=== PATIENT | female | born 1955 | race Caucasian/White ===

== ENCOUNTER → 2016-12-11 | Outpatient (CLI) | payer OTHER ==
--- NOTE | 2017-01-03 00:37 | ECWPNPC ---
PATIENT NAME: VANDANA GUEVARA (ZECHER) : 1955 GENDER: FEMALE VISIT DATE: 12/11/2016 DISCHARGE DATE: 12/11/16 1106 VISIT LOCKED DATE TIME: PHYSICIAN: BRIANNA CHOI RESOURCE: BRIANNA CHOI REASON FOR APPOINTMENT 1. WC HISTORY OF PRESENT ILLNESS HISTORY OF PRESENT ILLNESS: PAIN THE PATIENT DESCRIBES THE PAIN... FALL RISK SCREENING: SCREENING :NO FALLS IN THE PAST YEAR TODAY'S VISIT: NOTES: RATES PAIN TODAY 5/10. IS S/P LEFT SIJ INJECTION ON 09/11/16. HAD NEAR 100 % PAIN RELIEF FOR FIRST FEW WEEKS. PAIN BECAIN TO RETURN . USING TENS, VOLTAREN GEL, DOING STRETCHES, ICE AND HEAT, AND THERACAINE.LEFT ANKLE CONTINUES TO BE VERY WEAK, AND TOES ARE NUMB. CONTINUE TO HAVE PAIN IN LEFT ANKLE WHICH INCREASES WITH WEIGHBEARING. GAIT IS OFF. AFO SPINT IS TIGHT OVER DISTAL TIB/FIB AND WILL BE ASKING THE ORTHOTICS MAKER TO STRETCH IT.. CURRENT MEDICATIONS TAKING THERA TEARS ALLERGY 0.025 % SOLUTION 1 DROP INTO AFFECTED EYE OPHTHALMIC TWICE A DAY, NOTES: 09/10/16 TAKING VITAMIN D 2000 UNIT CAPSULE 1 CAPSULE ORALLY TWICE DAILY, NOTES: 09/11/16 08 TAKING FISH OIL DOUBLE STRENGTH 1200 MG CAPSULE 1 CAPSULE ORALLY TWICE DAILY, NOTES: 09/11/16 08 TAKING IBUPROFEN 800 MG TABLET 1 TABLET ORALLY THREE TIMES A DAY NEEDED, NOTES: NONE LATELY TAKING EPIPEN 2-LUPE 0.3 MG/0.3ML SOLUTION AUTO-INJECTOR INJECTION DIRECTED TAKING VOLTAREN 1 % GEL EXTERNALLY DIRECTED, NOTES: 09/10/16 TAKING GABAPENTIN 600 MG TABLET 1 TABLET ORALLY THREE TIMES A DAY, NOTES: 09/11/16 08 TAKING DIOVAN 320 MG TABLET 1 TABLET ORALLY ONCE A DAY, NOTES: 09/11/16 08 TAKING CLONAZEPAM 0.5 MG TABLET 1 TABLET ORALLY 0.5MG1/2 TAB IN AM, 0.5MG AFTERNOON, NOTES: 09/11/16 0845 TAKING PROAIR HFA 108 (90 BASE) MCG/ACT AEROSOL SOLUTION 2 PUFFS NEEDED INHALATION QID PRN, NOTES: NONE LATELY TAKING IMITREX 100 MG TABLET 1 TABLET NEEDED ORALLY DIRECTED PRN MIGRAINES, NOTES: NONE LATELY TAKING PROBIOTIC CAPSULE 1 TAB(S) ORALLY DAILY, NOTES: 09/11/16 08 TAKING MAGNESIUM 400 MG CAPSULE 1 TAB(S) ORALLY ONCE A DAY, NOTES: 09/10/16 1600 TAKING BENADRYL ALLERGY 25 MG CAPSULE 1 CAPSULE NEEDED ORALLY EVERY 6 HRS NEEDED SEASONAL, NOTES: 09/10/162099 TAKING BACLOFEN 10 MG TABLET 1 TABLET WITH FOOD OR MILK ORALLY DAILY TAKING TOPAMAX 100 100MG TABLET ORAL AT BEDTIME, NOTES: 09/10/162099 TAKING 28-0.8 MG TABLET ORALLY , NOTES: 09/11/16 08 TAKING ASPIRIN EC 81 MG TABLET DELAYED RELEASE 1 TABLET ORALLY ONCE A DAY TAKING TRAMADOL HCL 50 MG TABLET 1 TAB ORALLY EVERY 4-6 HRS NEEDED TAKING LABETALOL HCL 100 MG TABLET ORALLY TWO TIMES DAILY TAKING VALSARTAN 320 MG TABLET 1 TABLET ORALLY ONCE A DAY TAKING AMLODIPINE BESYLATE 5 MG TABLET 1 TABLET ORALLY ONCE A DAY TAKING ARIPIPRAZOLE 2 MG TABLET 1 TABLET ORALLY ONCE A DAY TAKING PERCOCET 5-325 MG TABLET 1 TABLET NEEDED ORALLY EVERY 6 HRS TAKING SUSTAIN 1-2 DROPS NEEDED TAKING RESTASIS 0.05 % EMULSION 1 INTO AFFECTED EYE OPHTHALMIC TWICE A DAY TAKING ATORVASTATIN CALCIUM 10 MG TABLET 1 TABLET ORALLY ONCE A DAY DISCONTINUED VERAPAMIL HCL CR 180 MG CAPSULE EXTENDED RELEASE 24 HOUR 1 TABLET ORALLY ONCE A DAY, NOTES: 09/11/16 08 DISCONTINUED CARAFATE 1 GM TABLET 1 TABLET ON AN EMPTY STOMACH ORALLY QID SLURRY DISCONTINUED NASONEX 50 MCG/ACT SUSPENSION 2 SPRAYS IN EACH NOSTRIL NASALLY ONCE A DAY MEDICATION LIST REVIEWED AND RECONCILED WITH THE PATIENT PAST MEDICAL HISTORY PRIMARY HTN,SECONDARY RENAL HYPERPARATHYROIDISM,CRI STAGE 3,VIT D DEFICIENT,HYPOMAGNISEMIA CKD3, 11/05 RENAL US WITH INCREASED ECHOGENICITY CONS WITH [facility] RENAL DISEASE - [facility] EDEMA VIT D DEF HTN HYPOTHYROIDISM ASTHMA, DR NARVAEZ 2008, FELL WORKING FOOT TANGLED IN PURSE HANDLES FOR CP CLINIC, WEARS BRACE 03/07 LIVER US DIFFUSE FIBROFATTY INFILTRATION OF THE LIVER 01/05 MRI L SPINE - MIN CTL CANAL STENOSIS AT L1-2 D/T DISC BULGE, LIGAMENTOUSE AND FACET HYPERTROPHY, MILD CTL CANAL STENOSIS AT L2-3, L4-5 D/T DISC BULGE, LIGAMENTOUS AND FACET HYPERTROPHY, DIFFUSE DISC BULGE AND SMALL L PARACENTRAL DISC PROTRUSION AT THE L5-S1 WITH MINIMAL COMPRESSION OF THE THECAL SAC AND S1 NERVES, GREATER ON THE L, COMPRESSION OF THE L5 NERVES IN THE NEURAL FORAMINA. EPIGASTRIC TENDERNESS - DR STONE GI SYR 15 L WRIST FX - FISH OBESITY PSEUDOSEIZURES - NEURO/ALI ALLERGIES IV DYE: ANAPHYLAXIS PENICILLIN (FOR ALLERGIES USE ONLY): ANAPHYLAXIS: ALLERGY BEE POLLEN: ANAPHYLAXIS BACTRIM: ANAPHYLAXIS: ALLERGY ERYTHROMYCIN: ANAPHYLAXIS: ALLERGY PENICILLIN (FOR ALLERGIES USE ONLY): HIVES INDOCIN: HEADEACHES: ALLERGY ZITHROMAX: HEADACHES: ALLERGY INDOCIN: HIVES ZITHROMAX: HIVES IVP DYE: ANAPHYLAXIS: ALLERGY NSAIDS,TORADOL: HIVES BEE STINGS: ANAPHYLAXIS: ALLERGY HARD SHELL SEAFOOD: ANAPHYLAXIS: ALLERGY BIAXIN: HALLUCINATIONS NSAIDS: ANAPHYLAXIS: ALLERGY MUSCLE RELAXERS: SHAKES: SIDE EFFECTS SULFA (FOR ALLERGY USE ONLY): HIVES: ALLERGY SOCIAL HISTORY GENERAL: TOBACCO USE ARE YOU A:NONSMOKER LEARNING BARRIERS / SPECIAL NEEDS ORIENTED TO PLAN OF CARE: PATIENT, PAIN MANAGEMENT PATIENT, ORIENTED TO PLAN OF CARE: PATIENT, PAIN MANAGEMENT PATIENT. NEW PATIENT PAIN DIARY TODAY'S VISITNOTES FROM 0-10, WHAT LEVEL IS YOUR PAIN TODAY?0 PAIN CLINIC PFS, CLERGY, PUBLIC HEALTH REFERRALS PFS REFERRAL NEEDED?NO CLERGY REFERRAL NEEDED?NO PUBLIC HEALTH REFERRAL NEEDED?NO WAS THE PROVIDER NOTIFIED OF ANY PERTINENT INFO?NO PFS REFERRAL NEEDED?NO CLERGY REFERRAL NEEDED?NO PUBLIC HEALTH REFERRAL NEEDED?NO WAS THE PROVIDER NOTIFIED OF ANY PERTINENT INFO?NO REVIEW OF SYSTEMS CONSTITUTIONAL: ANY CHANGE IN YOUR MEDICAL CONDITION? NO . CHILLS NO . FEVER NO . INFECTION: DO YOU HAVE NEW INFECTIONS? NO . DO YOU HAVE HISTORY OF MRSA? NO . MUSCULOSKELETAL: ANY NEW PATTERNS OF PAIN OR NUMBNESS? NO . GASTROENTEROLOGY: ANY NEW CHANGE IN BOWEL CONTROL? NO . GENITOURINARY: ANY NEW CHANGE IN BLADDER CONTROL? NO . IS THERE A CHANCE YOU COULD BE ? NO . HEMATOLOGY/LYMPH: DO YOU TAKE ANY BLOOD THINNERS? (FOR EXAMPLE- COUMADIN, PLAVIX, AGGRENOX, PLATEL, PRADAXA, OR XARELTO) NO . WHEN WAS YOUR LAST DOSE? DATE: TIME: . NEUROLOGY: HAVE YOU FALLEN IN THE PAST 6 MONTHS? NO . ANY NEW EXTREMITY NUMBNESS OR WEAKNESS? NO . CARDIOLOGY: DO YOU HAVE A PACEMAKER OR DEFIBRILLATOR? NO . CHEST PAIN SAW DR HUBBARD - IS DYPSNEIC, CHAEST WALL AIN AT STERNUM. HAD RECENT STRESS TEST. . RESPIRATORY: HAVE YOU BEEN SICK IN THE PAST WEEK? NO . FEVER NO . FLU LIKE SYMPTOMS? NO . COUGH YES. SHORT OF BREATH . INTEGUMENTARY: DO YOU HAVE ANY RASHES OR OPEN SORES? NO . ALLERGIC/IMMUNO: ARE YOU ALLERGIC TO SHELLFISH OR IV DYE? YES, SHELLFISH AND IV DYE . ANY NEW ALLERGIES? NO . PSYCHIATRIC: DO YOU HAVE THOUGHTS OF HURTING YOURSELF OR SOMEONE ELSE? NO . ARE YOU ABUSED, NEGLECTED, OR IN AN UNSAFE ENVIRONMENT? NO . ENDOCRINOLOGY: ARE YOU DIABETIC? NO . OTHER: DO YOU NEED ANY PRESCRIPTIONS? NO . IF YES, PLEASE LIST: ____ . ANY NEW PROBLEMS WITH YOUR MEDICATIONS? NO . WHEN DID YOU LAST EAT? ____ . WHEN DID YOU LAST DRINK? ____ . WHAT DID YOU LAST DRINK? ____ . NAME OF PERSON DRIVING YOU HOME? ____ . DO YOU HAVE ANY OTHER QUESTIONS OR CONCERNS NO . UROLOGY: GENERAL SEEING DR HOOD FOR RENAL ISSUES . REVIEWED BY: PROVIDER: BRIANNA GONZALES . VITAL SIGNS WT 224.0 LBS, HT 64 IN, BMI 38.45 INDEX, BP 137/76 MM HG, HR 54 /MIN, RR 16 /MIN, TEMP 97.3 F, OXYGEN SAT % 99%, NA INITIALS SC 10:12, REVIEWED BY: CYRUS. EXAMINATION GENERAL EXAMINATION: PSYCHALERT , ORIENTED X 3 , APPROPRIATE MOOD AND AFFECT . LUNGS:CLEAR TO AUSCULTATION BILATERALLY. HEART:HEART RATE REGULAR. MUSCULOSKELETAL:POINT TENDERNESS OVER LUMBOSACRAL AXIS AND PARTICULARLY OVER LEFT SACRAL ILIAC JOINT. SLOW TO RISE TO STANDING POSITION. LEFT FOOT DROP PRESENT . NO AFO SPLINT TODAY. LEFT FOOT SWOLLEN, TENDER OVER LATERAL MALLEOLUS AND NAVICULAR BONE. HYPER SENSTIVITY TO LIGHT TOUCH IN THIS AREA.. PERIPHERAL PULSES:1+, DP/PT PULSES LEFT FOOT.. ASSESSMENTS LEFT ANKLE PAIN - M25.572 [employer] WITH DISORDER OF LUMBAR SPINE - M54.30 LOW BACK PAIN - M54.5 TREATMENT OTHERS NOTES: CONTINUE CURRENT MEDS. ALTERNATE ICE/HEAT TO PAINFUL MUSCLE SPASMS. SEE ORTHOTICS FOR AFO SPINT. PROCEDURES PN WORKMANS' COMP OPINION IN YOUR OPINION, WAS THE INCIDENT THAT THE PATIENT DESCRIBED THE COMPETENT MEDICAL CAUSE OF THIS INJURY/ILLNESS? YES ARE THE PATIENT'S COMPLAINTS CONSISTENT WITH HIS/HER HISTORY OF THE INJURY/ILLNESS? YES IS THE PATIENT'S HISTORY OF THE INJURY/ILLNESS CONSISTENT WITH YOUR OBJECTIVE FINDING? YES WHAT IS THE PERCENTAGE OF TEMPORARY IMPAIRMENT? MARKED = 75% IS THE PATIENT WORKING? NO DOCTOR ON SITE: CHARIS MCMAHON MD PROCEDURE CODES FA211 ESTABILISHED PATIENT [facility] CHARGE FOLLOW UP 6 WEEKS WC ELECTRONICALLY SIGNED BY BENITO CUELLO ON 01/02/2017 AT 08:41 AM EST DISCLAIMER : THIS IS A VISIT SUMMARY EXTRACTED FROM THE [employer] CHART. IT IS NOT A COPY OF THE [employer] PROGRESS NOTE. BUCKY
== END ==
LOC: M PAIN 10:00
PROVIDERS: ATTEND Nurse Practitioner Family
DX: Z09 Encounter for follow-up examination after completed treatment for conditions other than malignant neoplasm (principal); G89.29 Other chronic pain; M25.572 Pain in left ankle and joints of left foot; M54.30 Sciatica, unspecified side; M51.24 Other intervertebral disc displacement, thoracic region; I12.9 Hypertensive chronic kidney disease with stage 1 through stage 4 chronic kidney disease, or unspecified chronic kidney disease; N18.3 Chronic kidney disease, stage 3 (moderate); E03.9 Hypothyroidism, unspecified; E55.9 Vitamin D deficiency, unspecified; J45.909 Unspecified asthma, uncomplicated; K76.0 Fatty (change of) liver, not elsewhere classified; M51.26 Other intervertebral disc displacement, lumbar region; M51.27 Other intervertebral disc displacement, lumbosacral region; M12.88 Other specific arthropathies, not elsewhere classified, other specified site; E66.9 Obesity, unspecified; Z68.38 Body mass index [BMI] 38.0-38.9, adult; Z91.041 Radiographic dye allergy status; Z88.0 Allergy status to penicillin; Z91.030 Bee allergy status; Z88.3 Allergy status to other anti-infective agents; Z88.8 Allergy status to other drugs, medicaments and biological substances; Z88.2 Allergy status to sulfonamides; Z88.6 Allergy status to analgesic agent; Z91.013 Allergy to seafood; Z79.1 Long term (current) use of non-steroidal anti-inflammatories (NSAID); Z79.82 Long term (current) use of aspirin; Z79.891 Long term (current) use of opiate analgesic; Z79.899 Other long term (current) drug therapy; Z86.69 Personal history of other diseases of the nervous system and sense organs

== ENCOUNTER → 2017-01-29 | Outpatient (CLI) | payer OTHER ==
--- NOTE | 2017-02-07 23:27 | ECWPNPC ---
PATIENT NAME: VANDANA GUEVARA (ZECHER) : 1955 GENDER: FEMALE VISIT DATE: 01/29/2017 DISCHARGE DATE: 01/29/17 1607 VISIT LOCKED DATE TIME: PHYSICIAN: CHARIS HER RESOURCE: CHARIS HER REASON FOR APPOINTMENT 1. W/C HISTORY OF PRESENT ILLNESS HISTORY OF PRESENT ILLNESS: PAIN THE PATIENT DESCRIBES THE PAIN... 61 YEAR OLD FEMALE PATIENT WITH HISTORY OF CHRONIC LOW BACK PAIN, LEFT FOOT AND ANKLE PAIN. PATIENT DESCRIBES THE PAIN BURNING, THROBBING, AND SHOOTING WITH A PAIN SCORE OF 6/10 ON TODAY'S VISIT. PATIENT WAS INJURED IN A WORK RELATED INJURY ON 05-11-2008. PATIENT REPORTS THAT SHE WAS SITTING ON THE COUCH AT WORK, WORKING A EMERGENCY CARE TECH, AND APPARENTLY BOTH FEET FELL ASLEEP AND NUMB, WHEN SHE GOT UP AND FELL. PATIENT REPORTS THAT AFTER A COUPLE OF HOURS OF CONTINUED WORKING HER LEFT FOOT TURNED BLACK AND BLUE WITH INCREASED PAIN, THEN SHE WENT TO THE ER. PATIENT REPORTS THAT SHE HAS TRIED PHYSICAL THERAPY IN THE PAST, AND IT WORKED FOR A WHILE THEN IT STOPPED IMPROVING, BUT SEE IS OPENING TO TRYING PHYSICAL THERAPY AGAIN. PATIENT REPORTS THAT SHE USES A TENS UNIT. PATIENT REPORTS THAT HER LEFT ANKLE IS VERY SWOLLEN TODAY. , PATIENT DENIES UNEXPLAINABLE WEIGHT LOSS, FEVER, CHILLS, NEW CHANGES ON HER URINARY OR BOWEL CONTROL. FALL RISK SCREENING: SCREENING :NO FALLS IN THE PAST YEAR CURRENT MEDICATIONS TAKING THERA TEARS ALLERGY 0.025 % SOLUTION 1 DROP INTO AFFECTED EYE OPHTHALMIC TWICE A DAY, NOTES: 09/10/16 TAKING VITAMIN D 2000 UNIT CAPSULE 1 CAPSULE ORALLY TWICE DAILY, NOTES: 09/11/16799 TAKING FISH OIL DOUBLE STRENGTH 1200 MG CAPSULE 1 CAPSULE ORALLY TWICE DAILY, NOTES: 09/11/16799 TAKING IBUPROFEN 800 MG TABLET 1 TABLET ORALLY THREE TIMES A DAY NEEDED, NOTES: NONE LATELY TAKING EPIPEN 2-LUPE 0.3 MG/0.3ML SOLUTION AUTO-INJECTOR INJECTION DIRECTED TAKING VOLTAREN 1 % GEL EXTERNALLY DIRECTED, NOTES: 09/10/16 TAKING GABAPENTIN 600 MG TABLET 1 TABLET ORALLY THREE TIMES A DAY, NOTES: 09/11/16799 TAKING DIOVAN 320 MG TABLET 1 TABLET ORALLY ONCE A DAY, NOTES: 09/11/16799 TAKING CLONAZEPAM 0.5 MG TABLET 0.5 ORALLY 0.5MG1/2 TAB IN AM, 0.5MG AFTERNOON, NOTES: 09/11/16 0845 TAKING PROAIR HFA 108 (90 BASE) MCG/ACT AEROSOL SOLUTION 2 PUFFS NEEDED INHALATION QID PRN, NOTES: NONE LATELY TAKING IMITREX 100 MG TABLET 1 TABLET NEEDED ORALLY DIRECTED PRN MIGRAINES, NOTES: NONE LATELY TAKING PROBIOTIC CAPSULE 1 TAB(S) ORALLY DAILY, NOTES: 09/11/16 0800 TAKING MAGNESIUM 400 MG CAPSULE 1 TAB(S) ORALLY ONCE A DAY, NOTES: 09/10/16 1600 TAKING BENADRYL ALLERGY 25 MG CAPSULE 1 CAPSULE NEEDED ORALLY EVERY 6 HRS NEEDED SEASONAL, NOTES: 09/10/162099 TAKING BACLOFEN 10 MG TABLET 1 TABLET WITH FOOD OR MILK ORALLY DAILY TAKING TOPAMAX 100 100MG TABLET ORAL AT BEDTIME, NOTES: 09/10/162099 TAKING 28-0.8 MG TABLET ORALLY , NOTES: 09/11/16 08 TAKING ASPIRIN EC 81 MG TABLET DELAYED RELEASE 1 TABLET ORALLY ONCE A DAY TAKING LABETALOL HCL 100 MG TABLET ORALLY TWO TIMES DAILY TAKING VALSARTAN 320 MG TABLET 1 TABLET ORALLY ONCE A DAY TAKING AMLODIPINE BESYLATE 5 MG TABLET 1 TABLET ORALLY ONCE A DAY TAKING ARIPIPRAZOLE 2 MG TABLET 1 TABLET ORALLY ONCE A DAY TAKING PERCOCET 5-325 MG TABLET 1 TABLET NEEDED ORALLY EVERY 6 HRS TAKING SUSTAIN 1-2 DROPS NEEDED TAKING RESTASIS 0.05 % EMULSION 1 INTO AFFECTED EYE OPHTHALMIC TWICE A DAY TAKING ATORVASTATIN CALCIUM 10 MG TABLET 1 TABLET ORALLY ONCE A DAY TAKING LIDODERM 5 % PATCH DIRECTED EXTERNALLY APPLY 1 PATCH TO PAINFUL AREA OF LOW BACK ON 12 HRS OFF 12 HOURS PRN PAIN. TAKING TRAMADOL HCL 50 MG TABLET 1 TAB ORALLY EVERY 4-6 HRS NEEDED TAKING LABETALOL HCL MEDICATION LIST REVIEWED AND RECONCILED WITH THE PATIENT PAST MEDICAL HISTORY PRIMARY HTN,SECONDARY RENAL HYPERPARATHYROIDISM,CRI STAGE 3,VIT D DEFICIENT,HYPOMAGNISEMIA CKD3, 11/05 RENAL US WITH INCREASED ECHOGENICITY CONS WITH [facility] MEDICAL RENAL DISEASE - [facility] EDEMA VIT D DEF HTN HYPOTHYROIDISM ASTHMA, DR NARVAEZ 2008, FELL WORKING FOOT TANGLED IN PURSE HANDLES FOR CP CLINIC, WEARS BRACE 03/07 LIVER US DIFFUSE FIBROFATTY INFILTRATION OF THE LIVER 01/05 MRI L SPINE - MIN CTL CANAL STENOSIS AT L1-2 D/T DISC BULGE, LIGAMENTOUSE AND FACET HYPERTROPHY, MILD CTL CANAL STENOSIS AT L2-3, L4-5 D/T DISC BULGE, LIGAMENTOUS AND FACET HYPERTROPHY, DIFFUSE DISC BULGE AND SMALL L PARACENTRAL DISC PROTRUSION AT THE L5-S1 WITH MINIMAL COMPRESSION OF THE THECAL SAC AND S1 NERVES, GREATER ON THE L, COMPRESSION OF THE L5 NERVES IN THE NEURAL FORAMINA. EPIGASTRIC TENDERNESS - DR STONE GI SYR 15 L WRIST FX - FISH OBESITY PSEUDOSEIZURES - NEURO/ALI ALLERGIES IV DYE: ANAPHYLAXIS PENICILLIN (FOR ALLERGIES USE ONLY): ANAPHYLAXIS: ALLERGY BEE POLLEN: ANAPHYLAXIS BACTRIM: ANAPHYLAXIS: ALLERGY ERYTHROMYCIN: ANAPHYLAXIS: ALLERGY PENICILLIN (FOR ALLERGIES USE ONLY): HIVES INDOCIN: HEADEACHES: ALLERGY ZITHROMAX: HEADACHES: ALLERGY INDOCIN: HIVES ZITHROMAX: HIVES IVP DYE: ANAPHYLAXIS: ALLERGY NSAIDS,TORADOL: HIVES BEE STINGS: ANAPHYLAXIS: ALLERGY HARD SHELL SEAFOOD: ANAPHYLAXIS: ALLERGY BIAXIN: HALLUCINATIONS NSAIDS: ANAPHYLAXIS: ALLERGY MUSCLE RELAXERS: SHAKES: SIDE EFFECTS SULFA (FOR ALLERGY USE ONLY): HIVES: ALLERGY SURGICAL HISTORY HYSTERECTOMY,CHOLECYSTECTOMY,INGUINAL HERNIA,RIGHT,COLONOSCOPY,POLYPECTOMYX2,TONSILLECTOMY FAMILY HISTORY NO FAMILY HISTORY DOCUMENTED. SOCIAL HISTORY GENERAL: TOBACCO USE ARE YOU A:NONSMOKER LEARNING BARRIERS / SPECIAL NEEDS ORIENTED TO PLAN OF CARE: PATIENT, PAIN MANAGEMENT PATIENT, ORIENTED TO PLAN OF CARE: PATIENT, PAIN MANAGEMENT PATIENT. NEW PATIENT PAIN DIARY TODAY'S VISITNOTES FROM 0-10, WHAT LEVEL IS YOUR PAIN TODAY?0 PAIN CLINIC PFS, CLERGY, PUBLIC HEALTH REFERRALS PFS REFERRAL NEEDED?NO CLERGY REFERRAL NEEDED?NO PUBLIC HEALTH REFERRAL NEEDED?NO WAS THE PROVIDER NOTIFIED OF ANY PERTINENT INFO?NO PFS REFERRAL NEEDED?NO CLERGY REFERRAL NEEDED?NO PUBLIC HEALTH REFERRAL NEEDED?NO WAS THE PROVIDER NOTIFIED OF ANY PERTINENT INFO?NO HOSPITALIZATION/MAJOR DIAGNOSTIC PROCEDURE SURG RELATED REVIEW OF SYSTEMS CONSTITUTIONAL: ANY CHANGE IN YOUR MEDICAL CONDITION? NO . CHILLS NO . FEVER NO . INFECTION: DO YOU HAVE NEW INFECTIONS? NO . DO YOU HAVE HISTORY OF MRSA? NO . MUSCULOSKELETAL: ANY NEW PATTERNS OF PAIN OR NUMBNESS? NO . GASTROENTEROLOGY: ANY NEW CHANGE IN BOWEL CONTROL? NO . GENITOURINARY: ANY NEW CHANGE IN BLADDER CONTROL? NO . IS THERE A CHANCE YOU COULD BE ? NO . HEMATOLOGY/LYMPH: DO YOU TAKE ANY BLOOD THINNERS? (FOR EXAMPLE- COUMADIN, PLAVIX, AGGRENOX, PLATEL, PRADAXA, OR XARELTO) NO . WHEN WAS YOUR LAST DOSE? DATE: TIME: . NEUROLOGY: HAVE YOU FALLEN IN THE PAST 6 MONTHS? NO . ANY NEW EXTREMITY NUMBNESS OR WEAKNESS? NO . CARDIOLOGY: DO YOU HAVE A PACEMAKER OR DEFIBRILLATOR? NO . RESPIRATORY: HAVE YOU BEEN SICK IN THE PAST WEEK? NO . FEVER NO . FLU LIKE SYMPTOMS? NO . COUGH NO . INTEGUMENTARY: DO YOU HAVE ANY RASHES OR OPEN SORES? NO . ALLERGIC/IMMUNO: ARE YOU ALLERGIC TO SHELLFISH OR IV DYE? NO . ANY NEW ALLERGIES? NO . PSYCHIATRIC: DO YOU HAVE THOUGHTS OF HURTING YOURSELF OR SOMEONE ELSE? NO . ARE YOU ABUSED, NEGLECTED, OR IN AN UNSAFE ENVIRONMENT? NO . ENDOCRINOLOGY: ARE YOU DIABETIC? YES . OTHER: DO YOU NEED ANY PRESCRIPTIONS? NO . IF YES, PLEASE LIST: ____ . ANY NEW PROBLEMS WITH YOUR MEDICATIONS? NO . WHEN DID YOU LAST EAT? ____ . WHEN DID YOU LAST DRINK? ____ . WHAT DID YOU LAST DRINK? ____ . NAME OF PERSON DRIVING YOU HOME? ____ . DO YOU HAVE ANY OTHER QUESTIONS OR CONCERNS NO . REVIEWED BY: PROVIDER: CHARIS HER MD . VITAL SIGNS WT 228.8 LBS, HT 64 IN, BMI 39.27 INDEX, BP 164/80 MM HG, HR 57 /MIN, RR 16 /MIN, TEMP 96.6 F, OXYGEN SAT % 98%, NA INITIALS SC 14 :29, REVIEWED BY: VD. EXAMINATION : PATIENT IS ALERT O X 3 AND COOPERATIVE. PATIENT AMBULATES WITH A LIMP ON THE LEFT LEG. PATIENT'S LEFT LEG WEAKER AT FLEXION AND EXTENSION COMPARED TO THE RIGHT LEG. THERE IS TENDERNESS IN THE POSTERIOR LEFT ANKLE AREA AND THE LATERAL ASPECT OF THE LEFT FOOT. PATIENT'S LEFT ANKLE IS SWOLLEN. PATIENT HAS TENDERNESS IN THE LOWER BACK AREA ESPECIALLY IN THE LEFT SIDE AND THE SACROILIAC AREA. PATIENT ALSO HAS TENDERNESS IN THE LEFT LUMBAR FACET JOINTS. MRI OF THE LEFT ANKLE DONE ON 10-11-2015 SHOWS THERE IS A SCAR FORMATION INVOLVING THE ANTERIOR TALOFIBULAR LIGAMENT. MRI OF THE LUMBAR SPINE DONE ON 08-07-2016 SHOWS FACET ARTHROPATHY CHANGES AND DISC BULGES. 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 GUEVARA'S PAIN MANAGEMENT CASE. AT THIS TIME I WILL REFILL LIDODERM PATCH, VOLTAREN GEL, AND TRAMADOL FOR THE PATIENT TODAY. PATIENT REPORTS THAT SHE IS USING THE MEDICATION INTENDED FOR PAIN MANAGEMENT AND DENIES USING ANY ILLEGAL SUBSTANCES. PATIENT IS USING VOLTAREN GEL IN THE BACK FOR THE SOMATIC PAIN. PATIENT IS USING TRAMADOL FOR SOMATIC PAIN. PATIENT WILL FOLLOW UP WITH ME IN 5 WEEKS. , INSTRUCTIONS WERE GIVEN, QUESTIONS WERE ANSWERED, PATIENT REPORTS UNDERSTANDING AND AGREES WITH THE PLAN. I, COREY STRINGER, DOCUMENTED THE ABOVE INFORMATION ACTING A SCRIBE FOR DR. HER. I HAVE REVIEWED THE ABOVE DOCUMENT, WRITTEN BY COREY STRINGER SCRIBE AND I VERIFY THAT IT IS ACCURATE. OTHERS REFILL LIDODERM PATCH, 5 %, DIRECTED, EXTERNALLY (WORKERS COMP), APPLY 1 PATCH TO PAINFUL AREA OF LOW BACK ON 12 HRS OFF 12 HOURS PRN PAIN., 30 DAY(S), 20, REFILLS 2 REFILL VOLTAREN GEL, 1 %, 1 STRIP, EXTERNALLY (WORKERS COMP), THREE TIMES DAILY NEEDED FOR PAIN, 30 DAY(S), 1, REFILLS 1, NOTES: 09/10/16 REFILL TRAMADOL HCL TABLET, 50 MG, 1 TAB, ORALLY, EVERY 4-6 HRS NEEDED MDD3, 30 DAY(S), 80, REFILLS 0 PROCEDURES PN WORKMANS' COMP OPINION IN YOUR OPINION, WAS THE INCIDENT THAT THE PATIENT DESCRIBED THE COMPETENT MEDICAL CAUSE OF THIS INJURY/ILLNESS? YES ARE THE PATIENT'S COMPLAINTS CONSISTENT WITH HIS/HER HISTORY OF THE INJURY/ILLNESS? YES IS THE PATIENT'S HISTORY OF THE INJURY/ILLNESS CONSISTENT WITH YOUR OBJECTIVE FINDING? YES WHAT IS THE PERCENTAGE OF TEMPORARY IMPAIRMENT? MARKED = 75% IS THE PATIENT WORKING? YES DOCTOR ON SITE: CHARIS MCMAHON MD PROCEDURE CODES FA211 ESTABILISHED PATIENT [facility] FACILITY CHARGE G4630 PAIN ASSESS POS TOOL F/U PLAN DOC [id number] DOC MEDS VERIFIED W/PT OR RE DISPOSITION & COMMUNICATION FOLLOW UP 5 WEEKS ELECTRONICALLY SIGNED BY CHARIS HER MD ON 02/07/2017 AT 09:25 PM EDT DISCLAIMER : THIS IS A VISIT SUMMARY EXTRACTED FROM THE [employer] CHART. IT IS NOT A COPY OF THE [employer] PROGRESS NOTE. BUCKY
== END ==
LOC: M PAIN 14:00
PROVIDERS: ATTEND Anesthesiology
DX: Z09 Encounter for follow-up examination after completed treatment for conditions other than malignant neoplasm (principal); G89.29 Other chronic pain; M46.1 Sacroiliitis, not elsewhere classified; M51.17 Intervertebral disc disorders with radiculopathy, lumbosacral region; M51.16 Intervertebral disc disorders with radiculopathy, lumbar region; I12.9 Hypertensive chronic kidney disease with stage 1 through stage 4 chronic kidney disease, or unspecified chronic kidney disease; N18.3 Chronic kidney disease, stage 3 (moderate); E11.9 Type 2 diabetes mellitus without complications; E55.9 Vitamin D deficiency, unspecified; E03.9 Hypothyroidism, unspecified; J45.909 Unspecified asthma, uncomplicated; F44.5 Conversion disorder with seizures or convulsions; E66.01 Morbid (severe) obesity due to excess calories; Z68.39 Body mass index [BMI] 39.0-39.9, adult; Z91.041 Radiographic dye allergy status; Z88.0 Allergy status to penicillin; Z91.030 Bee allergy status; Z88.1 Allergy status to other antibiotic agents; Z88.6 Allergy status to analgesic agent; Z91.013 Allergy to seafood; Z88.2 Allergy status to sulfonamides; Z88.8 Allergy status to other drugs, medicaments and biological substances; Z79.1 Long term (current) use of non-steroidal anti-inflammatories (NSAID); Z79.82 Long term (current) use of aspirin; Z79.891 Long term (current) use of opiate analgesic

== ENCOUNTER → 2017-03-04 | Outpatient (CLI) | payer OTHER ==
--- NOTE | 2017-03-19 01:16 | ECWPNPC ---
PATIENT NAME: VANDANA GUEVARA (ZECHER) : 1955 GENDER: FEMALE VISIT DATE: 03/04/2017 DISCHARGE DATE: 03/04/17 1603 VISIT LOCKED DATE TIME: PHYSICIAN: CHARIS HER RESOURCE: CHARIS HER REASON FOR APPOINTMENT 1. W/C LOWER BACK, LT ANKLE AND FOOT PAIN HISTORY OF PRESENT ILLNESS HISTORY OF PRESENT ILLNESS: PAIN THE PATIENT DESCRIBES THE PAIN... 61 YEAR OLD MALE PATIENT WITH HISTORY OF CHRONIC LOW BACK, ANKLE, AND FOOT PAIN. PATIENT DESCRIBES THE PAIN ACHING, STABBING, TENDER, THROBBING, SHOOTING, AND HAVING IT ALL THE TIME WITH A PAIN SCORE OF 5/10. PATIENT WAS HURT IN A WORK RELATED INJURY ON 05/11/2008 WHILE WORKING THE [employer]. MRS. GUEVARA WAS SITTING AND HER FEET BECAME NUMB AND WHEN SHE STOOD UP TO WALK SHE FELL. PATIENT HAS HAD 4 BACK SURGERIES SINCE THE INCIDENT. PATIENT STATES SHE HAS TRIED PHYSICAL THERAPY IN THE PAST AND IT DID AID IN PAIN RELIEF AND INCREASED FUNCTIONALITY FOR SOME TIME. PATIENT IS CURRENTLY USING LIDODERM PATCH, VOLTAREN GEL, AND TRAMADOL. MRS. GUEVARA STATES THAT THE MEDICATION KEEPS HER MOBILE AND FUNCTIONAL. PATIENT STATES THAT ANY ACTIVITY INCREASED THE PAIN IN HER LOWER BACK AND ANKLE AND AT THIS TIME REST AND MEDICATION AIDS IN PAIN RELIEF. PATIENT DENIES UNEXPLAINABLE WEIGHT LOSS, FEVER, CHILLS, NEW CHANGES ON HER URINARY OR BOWEL CONTROL. FALL RISK SCREENING: SCREENING :NO FALLS IN THE PAST YEAR CURRENT MEDICATIONS TAKING VOLTAREN 1 % GEL 1 STRIP EXTERNALLY (WORKERS COMP) THREE TIMES DAILY NEEDED FOR PAIN, NOTES: 09/10/16 TAKING LIDODERM 5 % PATCH DIRECTED EXTERNALLY (WORKERS COMP) APPLY 1 PATCH TO PAINFUL AREA OF LOW BACK ON 12 HRS OFF 12 HOURS PRN PAIN. TAKING TRAMADOL HCL 50 MG TABLET 1 TAB ORALLY EVERY 4-6 HRS NEEDED MDD3 TAKING THERA TEARS ALLERGY 0.025 % SOLUTION 1 DROP INTO AFFECTED EYE OPHTHALMIC TWICE A DAY, NOTES: 09/10/16 TAKING VITAMIN D 2000 UNIT CAPSULE 1 CAPSULE ORALLY TWICE DAILY, NOTES: 09/11/16 0800 TAKING FISH OIL DOUBLE STRENGTH 1200 MG CAPSULE 1 CAPSULE ORALLY TWICE DAILY, NOTES: 09/11/16 0800 TAKING IBUPROFEN 800 MG TABLET 1 TABLET ORALLY THREE TIMES A DAY NEEDED, NOTES: NONE LATELY TAKING EPIPEN 2-LUPE 0.3 MG/0.3ML SOLUTION AUTO-INJECTOR INJECTION DIRECTED TAKING GABAPENTIN 600 MG TABLET 1 TABLET ORALLY THREE TIMES A DAY, NOTES: 09/11/16 08 TAKING DIOVAN 320 MG TABLET 1 TABLET ORALLY ONCE A DAY, NOTES: 09/11/16799 TAKING CLONAZEPAM 0.5 MG TABLET 0.5 ORALLY 0.5MG1/2 TAB IN AM, 0.5MG 1/2 TAB AFTERNOON, NOTES: 09/11/16 08 TAKING PROAIR HFA 108 (90 BASE) MCG/ACT AEROSOL SOLUTION 2 PUFFS NEEDED INHALATION QID PRN, NOTES: NONE LATELY TAKING IMITREX 100 MG TABLET 1 TABLET NEEDED ORALLY DIRECTED PRN MIGRAINES, NOTES: NONE LATELY TAKING PROBIOTIC CAPSULE 1 TAB(S) ORALLY DAILY, NOTES: 09/11/16799 TAKING MAGNESIUM 400 MG CAPSULE 1 TAB(S) ORALLY ONCE A DAY, NOTES: 09/10/16 1600 TAKING BENADRYL ALLERGY 25 MG CAPSULE 1 CAPSULE NEEDED ORALLY EVERY 6 HRS NEEDED SEASONAL, NOTES: 09/10/162099 TAKING BACLOFEN 10 MG TABLET 1 TABLET WITH FOOD OR MILK ORALLY DAILY TAKING TOPAMAX 100 100MG TABLET ORAL AT BEDTIME, NOTES: 09/10/162099 TAKING 28-0.8 MG TABLET ORALLY , NOTES: 09/11/16 08 TAKING ASPIRIN EC 81 MG TABLET DELAYED RELEASE 1 TABLET ORALLY ONCE A DAY TAKING LABETALOL HCL 100 MG TABLET ORALLY TWO TIMES DAILY TAKING VALSARTAN 320 MG TABLET 1 TABLET ORALLY ONCE A DAY TAKING AMLODIPINE BESYLATE 5 MG TABLET 1 TABLET ORALLY ONCE A DAY TAKING ARIPIPRAZOLE 2 MG TABLET 1 TABLET ORALLY ONCE A DAY TAKING PERCOCET 5-325 MG TABLET 1 TABLET NEEDED ORALLY EVERY 6 HRS TAKING SUSTAIN 1-2 DROPS NEEDED TAKING ATORVASTATIN CALCIUM 10 MG TABLET 1 TABLET ORALLY ONCE A DAY DISCONTINUED RESTASIS 0.05 % EMULSION 1 INTO AFFECTED EYE OPHTHALMIC TWICE A DAY DISCONTINUED LABETALOL HCL MEDICATION LIST REVIEWED AND RECONCILED WITH THE PATIENT PAST MEDICAL HISTORY PRIMARY HTN,SECONDARY RENAL HYPERPARATHYROIDISM,CRI STAGE 3,VIT D DEFICIENT,HYPOMAGNISEMIA CKD3, 11/05 RENAL US WITH INCREASED ECHOGENICITY CONS WITH [facility] MEDICAL RENAL DISEASE - ERWIN EDEMA VIT D DEF HTN HYPOTHYROIDISM ASTHMA, DR NARVAEZ 2008, FELL WORKING FOOT TANGLED IN PURSE HANDLES FOR CP CLINIC, WEARS BRACE 03/07 LIVER US DIFFUSE FIBROFATTY INFILTRATION OF THE LIVER 01/05 MRI L SPINE - MIN CTL CANAL STENOSIS AT L1-2 D/T DISC BULGE, LIGAMENTOUSE AND FACET HYPERTROPHY, MILD CTL CANAL STENOSIS AT L2-3, L4-5 D/T DISC BULGE, LIGAMENTOUS AND FACET HYPERTROPHY, DIFFUSE DISC BULGE AND SMALL L PARACENTRAL DISC PROTRUSION AT THE L5-S1 WITH MINIMAL COMPRESSION OF THE THECAL SAC AND S1 NERVES, GREATER ON THE L, COMPRESSION OF THE L5 NERVES IN THE NEURAL FORAMINA. EPIGASTRIC TENDERNESS - DR STONE GI SYR 02/04 L WRIST FX - FISH OBESITY PSEUDOSEIZURES - NEURO/ALI ALLERGIES IV DYE: ANAPHYLAXIS PENICILLIN (FOR ALLERGIES USE ONLY): ANAPHYLAXIS: ALLERGY BEE POLLEN: ANAPHYLAXIS BACTRIM: ANAPHYLAXIS: ALLERGY ERYTHROMYCIN: ANAPHYLAXIS: ALLERGY PENICILLIN (FOR ALLERGIES USE ONLY): HIVES INDOCIN: HEADEACHES: ALLERGY ZITHROMAX: HEADACHES: ALLERGY INDOCIN: HIVES ZITHROMAX: HIVES IVP DYE: ANAPHYLAXIS: ALLERGY NSAIDS,TORADOL: HIVES BEE STINGS: ANAPHYLAXIS: ALLERGY HARD SHELL SEAFOOD: ANAPHYLAXIS: ALLERGY BIAXIN: HALLUCINATIONS NSAIDS: ANAPHYLAXIS: ALLERGY MUSCLE RELAXERS: SHAKES: SIDE EFFECTS SULFA (FOR ALLERGY USE ONLY): HIVES: ALLERGY SURGICAL HISTORY HYSTERECTOMY,CHOLECYSTECTOMY,INGUINAL HERNIA,RIGHT,COLONOSCOPY,POLYPECTOMYX2,TONSILLECTOMY TENDON REPAIR LEFT WRIST/L THUMB 02/17/2017 FAMILY HISTORY NO FAMILY HISTORY DOCUMENTED. SOCIAL HISTORY GENERAL: PAIN CLINIC PFS, CLERGY, PUBLIC HEALTH REFERRALS CLERGY REFERRAL NEEDED?NO WAS THE PROVIDER NOTIFIED OF ANY PERTINENT INFO?NO PFS REFERRAL NEEDED?NO PUBLIC HEALTH REFERRAL NEEDED?NO PATIENT: ____. HOSPITALIZATION/MAJOR DIAGNOSTIC PROCEDURE SURG RELATED REVIEW OF SYSTEMS CONSTITUTIONAL: ANY CHANGE IN YOUR MEDICAL CONDITION? YES 02/17 LEFT WRIST/THUMB TENDON REPAIR . CHILLS NO . FEVER NO . INFECTION: DO YOU HAVE NEW INFECTIONS? NO . DO YOU HAVE HISTORY OF MRSA? NO . MUSCULOSKELETAL: ANY NEW PATTERNS OF PAIN OR NUMBNESS? YES R/T LEFT WRIST/THUMB TENDON REPAIR SURGERY . GASTROENTEROLOGY: ANY NEW CHANGE IN BOWEL CONTROL? NO . GENITOURINARY: ANY NEW CHANGE IN BLADDER CONTROL? NO . IS THERE A CHANCE YOU COULD BE ? NO . HEMATOLOGY/LYMPH: DO YOU TAKE ANY BLOOD THINNERS? (FOR EXAMPLE- COUMADIN, PLAVIX, AGGRENOX, PLATEL, PRADAXA, OR XARELTO) NO . WHEN WAS YOUR LAST DOSE? DATE: TIME: . NEUROLOGY: HAVE YOU FALLEN IN THE PAST 6 MONTHS? NO . ANY NEW EXTREMITY NUMBNESS OR WEAKNESS? NO . CARDIOLOGY: DO YOU HAVE A PACEMAKER OR DEFIBRILLATOR? NO . RESPIRATORY: HAVE YOU BEEN SICK IN THE PAST WEEK? NO . FEVER NO . FLU LIKE SYMPTOMS? NO . COUGH NO . INTEGUMENTARY: DO YOU HAVE ANY RASHES OR OPEN SORES? NO . ALLERGIC/IMMUNO: ARE YOU ALLERGIC TO SHELLFISH OR IV DYE? YES . ANY NEW ALLERGIES? NO . PSYCHIATRIC: DO YOU HAVE THOUGHTS OF HURTING YOURSELF OR SOMEONE ELSE? NO . ARE YOU ABUSED, NEGLECTED, OR IN AN UNSAFE ENVIRONMENT? NO . ENDOCRINOLOGY: ARE YOU DIABETIC? NO . OTHER: DO YOU NEED ANY PRESCRIPTIONS? NO . IF YES, PLEASE LIST: ____ . ANY NEW PROBLEMS WITH YOUR MEDICATIONS? NO . WHEN DID YOU LAST EAT? ____ . WHEN DID YOU LAST DRINK? ____ . WHAT DID YOU LAST DRINK? ____ . NAME OF PERSON DRIVING YOU HOME? ____ . DO YOU HAVE ANY OTHER QUESTIONS OR CONCERNS NO . REVIEWED BY: PROVIDER: CHARIS HER MD . VITAL SIGNS WT 228 LBS, HT 64 IN, BMI 39.13 INDEX, BP 126/65 MM HG, HR 52 /MIN, RR 16 /MIN, TEMP 96.7 F, OXYGEN SAT % 94%, REVIEWED BY: MLF. EXAMINATION : PATIENT IS ALERT O X 3 AND COOPERATIVE. BRACE OVER LEFT ANKLE. LIMPING FROM LEFT LEG. ANTALGIC GAIT. TENDERNESS IN THE LOWER BACK AND PARASPINAL MUSCLE GROUP. LEFT LEG IS WEAKER THEN THE RIGHT AT EXTENSION AND FLEXION .MRI OF THE LUMBAR SPINE DONE ON 08/07/16 SHOWS MULTIPLE DISC BULGES, DEGENERATIVE DISC DISEASE, AND OSTEOARTHRITIC FACET DISEASE. 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 GUEVARA'S PAIN MANAGEMENT CASE. AT THIS TIME THE PATIENT WILL CONTINUE WITH THE SAME MEDICATION REGIME BEFORE. PATIENT DENIES ABUSE OF ANY MEDICATION, DENIES USE OF ILLEGAL SUBSTANCES AND STATES SHE IS ONLY USING THE MEDICATION FOR PAIN MANAGEMENT. URINE TOXICOLOGY REPORT DONE ON 03/04/17 SHOWS CONSISTENT RESULTS WITH THE PATIENT'S MEDICATION LIST. WE DISCUSSED POSSIBLE INTERVENTIONS THAT THE PATIENT IS A CANDIDATE FOR. WE DISCUSSED MOVING FORWARD WITH A RADIOFREQUENCY, PATIENT IS AWARE THAT THEY WILL NEED TO HAVE 2 DIAGNOSTIC TESTS DONE PRIOR TO THE RADIOFREQUENCY. PATIENT WOULD LIKE TO MOVE FORWARD WITH A LUMBAR FACET THERAPEUTIC BLOCK BEFORE TRYING THE DIAGNOSTIC TESTS. INSTRUCTIONS WERE GIVEN, QUESTIONS WERE ANSWERED, PATIENT REPORTS UNDERSTANDING AND AGREES WITH THE PLAN. I, SYDNIE AMBRIZ, DOCUMENTED THE ABOVE INFORMATION ACTING A SCRIBE FOR DR. HER. I HAVE REVIEWED THE ABOVE DOCUMENT, WRITTEN BY SYDNIE KILGOREIBScooby AND I VERIFY THAT IT IS ACCURATE. OTHERS REFILL VOLTAREN GEL, 1 %, 1 STRIP, EXTERNALLY (WORKERS COMP), THREE TIMES DAILY NEEDED FOR PAIN, 30 DAY(S), 1, REFILLS 3, NOTES: 09/10/16 REFILL LIDODERM PATCH, 5 %, DIRECTED, EXTERNALLY (WORKERS COMP), APPLY 1 PATCH TO PAINFUL AREA OF LOW BACK ON 12 HRS OFF 12 HOURS PRN PAIN., 30 DAY(S), 20, REFILLS 2 REFILL TRAMADOL HCL TABLET, 50 MG, 1 TAB, ORALLY (CODE D FOR CHRONIC PAIN ), EVERY 4-6 HRS NEEDED MDD3, 60 DAYS, 160, REFILLS 0 NOTES: FACET JOINT INJECTION MATERIAL WAS PRINTED,FACET JOINT INJECTION: YOUR EXPERIENCE MATERIAL WAS PRINTED. PROCEDURES PN WORKMANS' COMP OPINION IN YOUR OPINION, WAS THE INCIDENT THAT THE PATIENT DESCRIBED THE COMPETENT MEDICAL CAUSE OF THIS INJURY/ILLNESS? YES ARE THE PATIENT'S COMPLAINTS CONSISTENT WITH HIS/HER HISTORY OF THE INJURY/ILLNESS? YES IS THE PATIENT'S HISTORY OF THE INJURY/ILLNESS CONSISTENT WITH YOUR OBJECTIVE FINDING? YES WHAT IS THE PERCENTAGE OF TEMPORARY IMPAIRMENT? MARKED = 75% IS THE PATIENT WORKING? NO DOCTOR ON SITE: CHARIS MCMAHON MD PROCEDURE CODES FA211 ESTABILISHED PATIENT [facility] FACILITY CHARGE Q2584 DOC MEDS VERIFIED W/PT OR RE G8730 PAIN ASSESS POS TOOL F/U PLAN DOC DISPOSITION & COMMUNICATION FOLLOW UP LFBT AFTER APPROVAL ELECTRONICALLY SIGNED BY CHARIS HER MD ON 03/16/2017 AT 08:31 PM EDT DISCLAIMER : THIS IS A VISIT SUMMARY EXTRACTED FROM THE [employer] CHART. IT IS NOT A COPY OF THE [employer] PROGRESS NOTE. AMADOD
== END ==
LOC: M PAIN 15:20
PROVIDERS: ATTEND Anesthesiology
DX: G89.29 Other chronic pain (principal); M51.16 Intervertebral disc disorders with radiculopathy, lumbar region; M51.17 Intervertebral disc disorders with radiculopathy, lumbosacral region; M96.1 Postlaminectomy syndrome, not elsewhere classified; M47.816 Spondylosis without myelopathy or radiculopathy, lumbar region; M47.817 Spondylosis without myelopathy or radiculopathy, lumbosacral region; I12.9 Hypertensive chronic kidney disease with stage 1 through stage 4 chronic kidney disease, or unspecified chronic kidney disease; N18.3 Chronic kidney disease, stage 3 (moderate); E55.9 Vitamin D deficiency, unspecified; E03.9 Hypothyroidism, unspecified; J45.909 Unspecified asthma, uncomplicated; E66.9 Obesity, unspecified; F44.5 Conversion disorder with seizures or convulsions; Z68.39 Body mass index [BMI] 39.0-39.9, adult; Z91.041 Radiographic dye allergy status; Z88.0 Allergy status to penicillin; Z91.030 Bee allergy status; Z88.1 Allergy status to other antibiotic agents; Z88.6 Allergy status to analgesic agent; Z91.013 Allergy to seafood; Z88.2 Allergy status to sulfonamides; Z79.82 Long term (current) use of aspirin; Z79.899 Other long term (current) drug therapy

== ENCOUNTER → 2017-06-09 | Outpatient (CLI) | payer OTHER ==
[~2017-06-09] MED LIST: BUPIVACAINE HCL 0.25% 30 ML VIAL As Ordered ONE; LIDOCAINE 1% SDV INJ 30 ML VIAL As Ordered ONE; TRIAMCINOLONE ACETONIDE SUSP 40 MG/ML VIAL (J3301) As Ordered ONE; diazePAM 5 MG TAB As Ordered ONE; oxyCODONE 5MG TAB As Ordered ONE
--- NOTE | 2017-06-09 15:12 | REP ---
Partial lumbar spine series: Two views . History: Injection procedure for pain. 16 seconds of fluoroscopy time is reported. Findings: A sequence of two fluoroscopically obtained last image hold procedural spot radiographs of the lumbar spine document needle position and contrast injection associated with injection procedure. Signed by Mulugeta Simental MD 06/09/2017 03:04 P
--- NOTE | 2017-06-25 01:01 | ECWPNPC ---
PATIENT NAME: VANDANA GUEVARA (ZECHER) : 1955 GENDER: FEMALE VISIT DATE: 06/09/2017 DISCHARGE DATE: 06/09/17 1456 VISIT LOCKED DATE TIME: PHYSICIAN: CHARIS HER RESOURCE: CHARIS HER REASON FOR APPOINTMENT 1. WC, LUMBAR FACET HISTORY OF PRESENT ILLNESS HISTORY OF PRESENT ILLNESS: PAIN THE PATIENT DESCRIBES THE PAIN... FALL RISK SCREENING: SCREENING :NO FALLS IN THE PAST YEAR CURRENT MEDICATIONS TAKING PERCOCET 5-325 MG TABLET 1 TABLET NEEDED ORALLY EVERY 6 HRS, NOTES: MONTHS AGO TAKING VOLTAREN 1 % GEL 1 STRIP EXTERNALLY (WORKERS COMP) THREE TIMES DAILY NEEDED FOR PAIN, NOTES: 06/08/171999 TAKING LIDODERM 5 % PATCH DIRECTED EXTERNALLY (WORKERS COMP) APPLY 1 PATCH TO PAINFUL AREA OF LOW BACK ON 12 HRS OFF 12 HOURS PRN PAIN., NOTES: 06/08/17 0800A TAKING TRAMADOL HCL 50 MG TABLET 1 TAB ORALLY (CODE D FOR CHRONIC PAIN ) EVERY 4-6 HRS NEEDED MDD3, NOTES: MONTHS AGO TAKING THERA TEARS ALLERGY 0.025 % SOLUTION 1 DROP INTO AFFECTED EYE OPHTHALMIC TWICE A DAY, NOTES: 06/09/17 0600A TAKING VITAMIN D 2000 UNIT CAPSULE 1 CAPSULE ORALLY TWICE DAILY, NOTES: 06/08/17 1500 TAKING FISH OIL DOUBLE STRENGTH 1200 MG CAPSULE 1 CAPSULE ORALLY TWICE DAILY, NOTES: 06/08/17 1500 TAKING IBUPROFEN 800 MG TABLET 1 TABLET ORALLY THREE TIMES A DAY NEEDED, NOTES: NONE LATELY TAKING EPIPEN 2-LUPE 0.3 MG/0.3ML SOLUTION AUTO-INJECTOR INJECTION DIRECTED, NOTES: 2 WEEKS AGO TAKING GABAPENTIN 600 MG TABLET 1 TABLET ORALLY THREE TIMES A DAY, NOTES: 06/09/17 0700 TAKING DIOVAN 320 MG TABLET 1 TABLET ORALLY ONCE A DAY, NOTES: 06/08/17 2200 TAKING CLONAZEPAM 0.5 MG TABLET 0.5 ORALLY 0.5MG1/2 TAB IN AM, 0.5MG 1/2 TAB AFTERNOON, NOTES: 06/09/17 0700 TAKING PROAIR HFA 108 (90 BASE) MCG/ACT AEROSOL SOLUTION 2 PUFFS NEEDED INHALATION QID PRN, NOTES: NONE LATELY TAKING IMITREX 100 MG TABLET 1 TABLET NEEDED ORALLY DIRECTED PRN MIGRAINES, NOTES: 06/06/17 1800 TAKING PROBIOTIC CAPSULE 1 TAB(S) ORALLY DAILY, NOTES: 06/08/17699 TAKING MAGNESIUM 400 MG CAPSULE 1 TAB(S) ORALLY ONCE A DAY, NOTES: 06/08/17699 TAKING BENADRYL ALLERGY 25 MG CAPSULE 1 CAPSULE NEEDED ORALLY EVERY 6 HRS NEEDED SEASONAL, NOTES: NONE LATELY TAKING BACLOFEN 10 MG TABLET 1 TABLET WITH FOOD OR MILK ORALLY DAILY, NOTES: 06/08/172199 TAKING TOPAMAX 100 100MG TABLET ORAL AT BEDTIME, NOTES: 06/08/172199 TAKING 28-0.8 MG TABLET ORALLY , NOTES: 06/08/17699 TAKING ASPIRIN EC 81 MG TABLET DELAYED RELEASE 1 TABLET ORALLY ONCE A DAY, NOTES: 06/08/17699 TAKING LABETALOL HCL 100 MG TABLET ORALLY TWO TIMES DAILY, NOTES: 06/08/172199 TAKING VALSARTAN 320 MG TABLET 1 TABLET ORALLY ONCE A DAY, NOTES: 06/08/171499 TAKING AMLODIPINE BESYLATE 5 MG TABLET 1 TABLET ORALLY ONCE A DAY, NOTES: 06/08/17699 TAKING ARIPIPRAZOLE 2 MG TABLET 1 TABLET ORALLY ONCE A DAY, NOTES: 06/08/17699 TAKING SUSTAIN 1-2 DROPS NEEDED, NOTES: 06/08/17699 TAKING ATORVASTATIN CALCIUM 10 MG TABLET 1 TABLET ORALLY ONCE A DAY, NOTES: 06/08/172199 TAKING HYDROCHLOROTHIAZIDE 12.5 MG CAPSULE 1 CAPSULE IN THE MORNING ORALLY ONCE A DAY, NOTES: 06/08/17699 TAKING KLOR-CON M20 20 MEQ TABLET EXTENDED RELEASE 1 TABLET WITH FOOD ORALLY ONCE A DAY, NOTES: 06/08/17 TAKING SUMATRIPTAN & HOMEOPATHIC PROD 50 MG THERAPY PACK 100MG ORALLY BID PRN HEADACHE, NOTES: 06/06/171799 TAKING ALBUTEROL SULFATE 108 (90 BASE) MCG/ACT AEROSOL POWDER BREATH ACTIVATED 1 PUFF NEEDED INHALATION EVERY 4 HRS, NOTES: NONE LATELY TAKING EPINEPHRINE 0.3 MG/DOSE DEVICE INJECTION , NOTES: 2 WEEKS AGO MEDICATION LIST REVIEWED AND RECONCILED WITH THE PATIENT PAST MEDICAL HISTORY PRIMARY HTN,SECONDARY RENAL HYPERPARATHYROIDISM,CRI STAGE 3,VIT D DEFICIENT,HYPOMAGNISEMIA CKD3, 11/05 RENAL US WITH INCREASED ECHOGENICITY CONS WITH [facility] MEDICAL RENAL DISEASE - ERWNI EDEMA VIT D DEF HTN HYPOTHYROIDISM ASTHMA, DR NARVAEZ 2008, FELL WORKING FOOT TANGLED IN PURSE HANDLES FOR CP CLINIC, WEARS BRACE 03/07 LIVER US DIFFUSE FIBROFATTY INFILTRATION OF THE LIVER 01/05 MRI L SPINE - MIN CTL CANAL STENOSIS AT L1-2 D/T DISC BULGE, LIGAMENTOUSE AND FACET HYPERTROPHY, MILD CTL CANAL STENOSIS AT L2-3, L4-5 D/T DISC BULGE, LIGAMENTOUS AND FACET HYPERTROPHY, DIFFUSE DISC BULGE AND SMALL L PARACENTRAL DISC PROTRUSION AT THE L5-S1 WITH MINIMAL COMPRESSION OF THE THECAL SAC AND S1 NERVES, GREATER ON THE L, COMPRESSION OF THE L5 NERVES IN THE NEURAL FORAMINA. EPIGASTRIC TENDERNESS - DR STONE GI SYR 02/04 L WRIST FX - FISH OBESITY PSEUDOSEIZURES - NEURO/ALI ALLERGIES IV DYE: ANAPHYLAXIS PENICILLIN (FOR ALLERGIES USE ONLY): ANAPHYLAXIS: ALLERGY BEE POLLEN: ANAPHYLAXIS BACTRIM: ANAPHYLAXIS: ALLERGY ERYTHROMYCIN: ANAPHYLAXIS: ALLERGY PENICILLIN (FOR ALLERGIES USE ONLY): HIVES INDOCIN: HEADEACHES: ALLERGY ZITHROMAX: HEADACHES: ALLERGY INDOCIN: HIVES ZITHROMAX: HIVES IVP DYE: ANAPHYLAXIS: ALLERGY NSAIDS,TORADOL: HIVES BEE STINGS: ANAPHYLAXIS: ALLERGY HARD SHELL SEAFOOD: ANAPHYLAXIS: ALLERGY BIAXIN: HALLUCINATIONS NSAIDS: ANAPHYLAXIS: ALLERGY MUSCLE RELAXERS: SHAKES: SIDE EFFECTS SULFA (FOR ALLERGY USE ONLY): HIVES: ALLERGY SURGICAL HISTORY HYSTERECTOMY,CHOLECYSTECTOMY,INGUINAL HERNIA,RIGHT,COLONOSCOPY,POLYPECTOMYX2,TONSILLECTOMY TENDON REPAIR LEFT WRIST/L THUMB 02/17/2017 HOSPITALIZATION/MAJOR DIAGNOSTIC PROCEDURE SURG RELATED REVIEW OF SYSTEMS REVIEWED BY: PROVIDER: . CONSTITUTIONAL: ANY CHANGE IN YOUR MEDICAL CONDITION? NO . CHILLS NO . FEVER NO . INFECTION: DO YOU HAVE NEW INFECTIONS? NO . DO YOU HAVE HISTORY OF MRSA? NO . MUSCULOSKELETAL: ANY NEW PATTERNS OF PAIN OR NUMBNESS? YES, PAIN IS RADIATING UP BOTH HIPS FROM SPINE AREA . GASTROENTEROLOGY: ANY NEW CHANGE IN BOWEL CONTROL? NO . GENITOURINARY: ANY NEW CHANGE IN BLADDER CONTROL? NO . IS THERE A CHANCE YOU COULD BE ? NO . HEMATOLOGY/LYMPH: DO YOU TAKE ANY BLOOD THINNERS? (FOR EXAMPLE- COUMADIN, PLAVIX, AGGRENOX, PLATEL, PRADAXA, OR XARELTO) NO . WHEN WAS YOUR LAST DOSE? DATE: TIME: . NEUROLOGY: HAVE YOU FALLEN IN THE PAST 6 MONTHS? NO . ANY NEW EXTREMITY NUMBNESS OR WEAKNESS? NO . CARDIOLOGY: DO YOU HAVE A PACEMAKER OR DEFIBRILLATOR? NO . RESPIRATORY: HAVE YOU BEEN SICK IN THE PAST WEEK? NO . FEVER NO . FLU LIKE SYMPTOMS? NO . COUGH NO . INTEGUMENTARY: DO YOU HAVE ANY RASHES OR OPEN SORES? NO . ALLERGIC/IMMUNO: ARE YOU ALLERGIC TO SHELLFISH OR IV DYE? YES, IV DYE AND SHELLFISH . ANY NEW ALLERGIES? NO . PSYCHIATRIC: DO YOU HAVE THOUGHTS OF HURTING YOURSELF OR SOMEONE ELSE? NO . ARE YOU ABUSED, NEGLECTED, OR IN AN UNSAFE ENVIRONMENT? NO . ENDOCRINOLOGY: ARE YOU DIABETIC? NO . OTHER: DO YOU NEED ANY PRESCRIPTIONS? NO . IF YES, PLEASE LIST: ____ . ANY NEW PROBLEMS WITH YOUR MEDICATIONS? NO . WHEN DID YOU LAST EAT? 06/08/171999 . WHEN DID YOU LAST DRINK? 06/09/17 07 . WHAT DID YOU LAST DRINK? WATER . NAME OF PERSON DRIVING YOU HOME? OPHELIA- . DO YOU HAVE ANY OTHER QUESTIONS OR CONCERNS NO . VITAL SIGNS WT 232.4 LBS, HT 64 IN, BMI 39.89 INDEX, BP 119/74 MM HG, HR 56 /MIN, RR 16 /MIN, TEMP 96.3 F, OXYGEN SAT % 96%, NA INITIALS TL 1129. ASSESSMENTS SPONDYLOSIS WITHOUT MYELOPATHY OR RADICULOPATHY, LUMBAR REGION - M47.816 (PRIMARY) SPONDYLOSIS WITHOUT MYELOPATHY OR RADICULOPATHY, LUMBOSACRAL REGION - M47.817 PROCEDURES PN LUMBAR FACET BLOCK THERAPEUTIC PRE PROCEDURE DIAGNOSIS LUMBAR SPONDYLOSIS, LUMBOSACRAL SPONDYLOSIS POST PROCEDURE DIAGNOSIS LUMBAR SPONDYLOSIS, LUMBOSACRAL SPONDYLOSIS PROCEDURE BILATERAL L4-L5 AND BILATERAL L5-S1 LUMBAR FACET THERAPEUTIC BLOCK SURGEON DR. CHARIS HER POWER SHEAR OPERATOR NONE ANESTHESIA LOCAL PRE PROCEDURE NOTE THE PATIENT HAS A HISTORY OF CHRONIC LOW BACK PAIN. I EVALUATE THE PATIENT AND REVIEWED THE CHART. I WENT OVER THE RISKS, ALTERNATIVES, AND BENEFITS ASSOCIATED WITH THIS PROCEDURE. THE PATIENT WOULD LIKE TO PROCEED AND GIVE CONSENT TO PERFORMED THE PROCEDURE. THE PATIENT DENIES UNEXPLAINABLE WEIGHT LOSS, FEVER, CHILLS, OR NEW CHANGES IN URINARY OR BOWEL CONTROL DESCRIPTION OF PROCEDURE THE PATIENT WAS BROUGHT TO THE PROCEDURE ROOM AND PLACED IN THE PRONE POSITION. THE LUMBOSACRAL AREA WAS CLEANED WITH CHLORAPREP SOLUTION AND DRAPED ASEPTICALLY. THE PROCEDURE WAS DONE UNDER STERILE CONDITIONS. I CHECKED LATERALITY AND THE LEVEL WHERE THE PROCEDURE WAS GOING TO BE PERFORMED WITH THE PATIENT AND THE SUPPORTING STAFF AT THE MOMENT OF THE TIME OUT IN THE PROCEDURE ROOM. UNDER FLUOROSCOPIC GUIDANCE, THE TARGET POINT WAS SELECTED AT THE RIGHT AND LEFT L4-L5 AND RIGHT AND LEFT L5-S1 FACET JOINT. TARGET POINT WAS SELECTED AFTER LATERAL ROTATION AND TILT OF THE MAGNIFIER OF THE C-ARM. LIDOCAINE 0.5% WAS USED TO NUMB THE SKIN AND THE SUBCUTANEOUS TISSUE BELOW IT. SPINAL NEEDLES, 22-GAUGE, WERE ADVANCED UNDER FLUOROSCOPIC GUIDANCE AND FOLLOWING PATIENT FEEDBACK UNTIL THE TARGETS WERE TOUCHED. THE POSITION OF THE NEEDLES WAS VERIFIED WITH AP AND LATERAL VIEWS. AFTER PROPER POSITION OF THE NEEDLES WAS ACHIEVED, A SOLUTION OF 1.9 ML OF BUPIVACAINE 0.125% OF KENALOG 10 MG WAS INJECTED AT EACH SITE. THERE WAS NO EVIDENCE OF BLOOD, PARESTHESIA OR CEREBROSPINAL FLUID DURING THE PROCEDURE. THE PATIENT WAS SENT TO THE RECOVERY ROOM. THE PATIENT WAS MOVING THE EXTREMITIES AND DOING WELL. THERE WAS NO COMPLICATION DURING THE PROCEDURE. FLUOROSCOPY TIME WAS 16 SECONDS POST PROCEDURE NOTE THE PATIENT WILL BE SEEN IN A FOLLOW UP IN THE NEXT FEW WEEKS. INSTRUCTIONS WERE GIVEN, QUESTIONS WERE ANSWERED, AND THE PATIENT EXPRESSED UNDERSTANDING AND AGREES WITH THE PLAN. I, SYDNIE AMBRIZ, DOCUMENTED THE ABOVE INFORMATION ACTING A SCRIBE FOR DR. HER. I, DR. HER, HAVE REVIEWED THE ABOVE DOCUMENT, SCRIBED BY SYDNIE AMBRIZ, AND I VERIFY THAT IT IS ACCURATE PN WORKMANS' COMP OPINION IN YOUR OPINION, WAS THE INCIDENT THAT THE PATIENT DESCRIBED THE COMPETENT MEDICAL CAUSE OF THIS INJURY/ILLNESS? YES ARE THE PATIENT'S COMPLAINTS CONSISTENT WITH HIS/HER HISTORY OF THE INJURY/ILLNESS? YES IS THE PATIENT'S HISTORY OF THE INJURY/ILLNESS CONSISTENT WITH YOUR OBJECTIVE FINDING? YES WHAT IS THE PERCENTAGE OF TEMPORARY IMPAIRMENT? MARKED = 75% IS THE PATIENT WORKING? NO DOCTOR ON SITE: CHARIS MCMAHON MD DIAGNOSTIC IMAGING [facility] FLUORO GUIDANCE (PAIN)[id number] PROCEDURE CODES 17504 INJ PARAVERT F JNT L/S 1 LEV 23087 INJ PARAVERT F JNT L/S 2 LEV 6045F RADXPS IN END [id number] PXD DISPOSITION & COMMUNICATION FOLLOW UP 3 WEEKS ELECTRONICALLY SIGNED BY CHARIS HER MD ON 06/22/2017 AT 11:41 AM EDT DISCLAIMER : THIS IS A VISIT SUMMARY EXTRACTED FROM THE [employer] CHART. IT IS NOT A COPY OF THE [employer] PROGRESS NOTE. BUCKY
== END ==
LOC: M PAIN 11:00
PROVIDERS: ATTEND Anesthesiology
DX: G89.29 Other chronic pain (principal); M47.816 Spondylosis without myelopathy or radiculopathy, lumbar region; M47.817 Spondylosis without myelopathy or radiculopathy, lumbosacral region; I12.9 Hypertensive chronic kidney disease with stage 1 through stage 4 chronic kidney disease, or unspecified chronic kidney disease; N25.81 Secondary hyperparathyroidism of renal origin; N18.3 Chronic kidney disease, stage 3 (moderate); E55.9 Vitamin D deficiency, unspecified; E03.9 Hypothyroidism, unspecified; J45.909 Unspecified asthma, uncomplicated; E66.9 Obesity, unspecified; Z68.39 Body mass index [BMI] 39.0-39.9, adult; G40.89 Other seizures; Z91.041 Radiographic dye allergy status; Z91.030 Bee allergy status; Z91.013 Allergy to seafood; Z88.0 Allergy status to penicillin; Z88.2 Allergy status to sulfonamides; Z88.1 Allergy status to other antibiotic agents; Z88.8 Allergy status to other drugs, medicaments and biological substances; Z79.891 Long term (current) use of opiate analgesic; Z79.82 Long term (current) use of aspirin; Z79.899 Other long term (current) drug therapy
CPT/HCPCS: 64493; 64494; J3301

== ENCOUNTER → 2017-06-25 | Outpatient (CLI) | payer MEDICARE, OTHER ==
--- NOTE | 2017-07-16 00:35 | ECWPNPC ---
PATIENT NAME: VANDANA GUEVARA (ZECHER) : 1955 GENDER: FEMALE VISIT DATE: 06/25/2017 DISCHARGE DATE: 06/25/17 1259 VISIT LOCKED DATE TIME: PHYSICIAN: BRIANNA CHOI RESOURCE: BRIANNA CHOI REASON FOR APPOINTMENT 1. NEW BODY PART, L WRIST AND HAND HISTORY OF PRESENT ILLNESS HISTORY OF PRESENT ILLNESS: PAIN THE PATIENT DESCRIBES THE PAIN... FALL RISK SCREENING: SCREENING :NO FALLS IN THE PAST YEAR TODAY'S VISIT: NOTES: REFERRED TO [facility] FOR NEW BODY PART OF LEFT WRIST REFERRED BY DR MCGRATH. SHE IS LEFT HAND DOMINANT.ONSET WAS AND WAS HAVING ISSUES WITH MOVING THE THUMB. SAW DR MCGRATH AND DID A TENDON TRANSFER AND A TEAR WAS FOUND ON THE ULNAR SIDE. STATES IS HAVING TROUBLE WITH WRITING, AND STRENGTH. IS SEEING Adan LANDON OT AND IS DOING THERAPY TIW. TRACTION HAS HELPEED THE MOST. DR MCGRATH INJECTED STEROID TO AREA 06/11/17 AND HAD IMROVEMENT IN FLEXIBILITY AND FUNCTION. RATES PAIN IN THIS AREA 4-5/10 TODAY AFTER THERAPY. BEST IS 3/10 AND OCCASIONALLTY TO 10/10. HAS SWELLING IN LEFT HAND AND WRIST. PAIN CAN RADIATE INTO HAND AND UP FOREARM. I HAVING SEVERE SPASMS IN LEFT HAND AND ARM SLEEP IS DISCRUPTED.. CURRENT MEDICATIONS TAKING PERCOCET 5-325 MG TABLET 1 TABLET NEEDED ORALLY EVERY 6 HRS TAKING VOLTAREN 1 % GEL 1 STRIP EXTERNALLY (WORKERS COMP) THREE TIMES DAILY NEEDED FOR PAIN TAKING LIDODERM 5 % PATCH DIRECTED EXTERNALLY (WORKERS COMP) APPLY 1 PATCH TO PAINFUL AREA OF LOW BACK ON 12 HRS OFF 12 HOURS PRN PAIN. TAKING TRAMADOL HCL 50 MG TABLET 1 TAB ORALLY (CODE D FOR CHRONIC PAIN ) EVERY 4-6 HRS NEEDED MDD3 TAKING THERA TEARS ALLERGY 0.025 % SOLUTION 1 DROP INTO AFFECTED EYE OPHTHALMIC TWICE A DAY TAKING VITAMIN D 2000 UNIT CAPSULE 1 CAPSULE ORALLY TWICE DAILY TAKING FISH OIL DOUBLE STRENGTH 1200 MG CAPSULE 1 CAPSULE ORALLY TWICE DAILY TAKING IBUPROFEN 800 MG TABLET 1 TABLET ORALLY THREE TIMES A DAY NEEDED TAKING EPIPEN 2-LUPE 0.3 MG/0.3ML SOLUTION AUTO-INJECTOR INJECTION DIRECTED TAKING GABAPENTIN 600 MG TABLET 1 TABLET ORALLY THREE TIMES A DAY TAKING DIOVAN 320 MG TABLET 1 TABLET ORALLY ONCE A DAY TAKING CLONAZEPAM 0.5 MG TABLET 0.5 ORALLY 0.5MG1/2 TAB IN AM, 0.5MG 1/2 TAB AFTERNOON TAKING PROAIR HFA 108 (90 BASE) MCG/ACT AEROSOL SOLUTION 2 PUFFS NEEDED INHALATION QID PRN TAKING IMITREX 100 MG TABLET 1 TABLET NEEDED ORALLY DIRECTED PRN MIGRAINES TAKING PROBIOTIC CAPSULE 1 TAB(S) ORALLY DAILY, NOTES: 06/08/17 0700 TAKING MAGNESIUM 400 MG CAPSULE 1 TAB(S) ORALLY ONCE A DAY TAKING BENADRYL ALLERGY 25 MG CAPSULE 1 CAPSULE NEEDED ORALLY EVERY 6 HRS NEEDED SEASONAL TAKING BACLOFEN 10 MG TABLET 1 TABLET WITH FOOD OR MILK ORALLY DAILY TAKING TOPAMAX 100 100MG TABLET ORAL AT BEDTIME TAKING 28-0.8 MG TABLET ORALLY TAKING ASPIRIN EC 81 MG TABLET DELAYED RELEASE 1 TABLET ORALLY ONCE A DAY TAKING LABETALOL HCL 100 MG TABLET ORALLY TWO TIMES DAILY TAKING VALSARTAN 320 MG TABLET 1 TABLET ORALLY ONCE A DAY TAKING AMLODIPINE BESYLATE 5 MG TABLET 1 TABLET ORALLY ONCE A DAY TAKING ARIPIPRAZOLE 2 MG TABLET 1 TABLET ORALLY ONCE A DAY TAKING SUSTAIN 1-2 DROPS NEEDED TAKING ATORVASTATIN CALCIUM 10 MG TABLET 1 TABLET ORALLY ONCE A DAY TAKING HYDROCHLOROTHIAZIDE 12.5 MG CAPSULE 1 CAPSULE IN THE MORNING ORALLY ONCE A DAY TAKING KLOR-CON M20 20 MEQ TABLET EXTENDED RELEASE 1 TABLET WITH FOOD ORALLY ONCE A DAY TAKING SUMATRIPTAN & HOMEOPATHIC PROD 50 MG THERAPY PACK 100MG ORALLY BID PRN HEADACHE TAKING ALBUTEROL SULFATE 108 (90 BASE) MCG/ACT AEROSOL POWDER BREATH ACTIVATED 1 PUFF NEEDED INHALATION EVERY 4 HRS TAKING EPINEPHRINE 0.3 MG/DOSE DEVICE INJECTION MEDICATION LIST REVIEWED AND RECONCILED WITH THE PATIENT PAST MEDICAL HISTORY PRIMARY HTN,SECONDARY RENAL HYPERPARATHYROIDISM,CRI STAGE 3,VIT D DEFICIENT,HYPOMAGNISEMIA CKD3, 11/05 RENAL US WITH INCREASED ECHOGENICITY CONS WITH [facility] MEDICAL RENAL DISEASE - ERWIN EDEMA VIT D DEF HTN HYPOTHYROIDISM ASTHMA, DR NARVAEZ 2008, FELL WORKING FOOT TANGLED IN PURSE HANDLES FOR CP CLINIC, WEARS BRACE 03/07 LIVER US DIFFUSE FIBROFATTY INFILTRATION OF THE LIVER 01/05 MRI L SPINE - MIN CTL CANAL STENOSIS AT L1-2 D/T DISC BULGE, LIGAMENTOUSE AND FACET HYPERTROPHY, MILD CTL CANAL STENOSIS AT L2-3, L4-5 D/T DISC BULGE, LIGAMENTOUS AND FACET HYPERTROPHY, DIFFUSE DISC BULGE AND SMALL L PARACENTRAL DISC PROTRUSION AT THE L5-S1 WITH MINIMAL COMPRESSION OF THE THECAL SAC AND S1 NERVES, GREATER ON THE L, COMPRESSION OF THE L5 NERVES IN THE NEURAL FORAMINA. EPIGASTRIC TENDERNESS - DR STONE GI SYR 02/04 L WRIST FX - FISH OBESITY PSEUDOSEIZURES - NEURO/ALI ALLERGIES IV DYE: ANAPHYLAXIS PENICILLIN (FOR ALLERGIES USE ONLY): ANAPHYLAXIS: ALLERGY BEE POLLEN: ANAPHYLAXIS BACTRIM: ANAPHYLAXIS: ALLERGY ERYTHROMYCIN: ANAPHYLAXIS: ALLERGY PENICILLIN (FOR ALLERGIES USE ONLY): HIVES INDOCIN: HEADEACHES: ALLERGY ZITHROMAX: HEADACHES: ALLERGY INDOCIN: HIVES ZITHROMAX: HIVES IVP DYE: ANAPHYLAXIS: ALLERGY NSAIDS,TORADOL: HIVES BEE STINGS: ANAPHYLAXIS: ALLERGY HARD SHELL SEAFOOD: ANAPHYLAXIS: ALLERGY BIAXIN: HALLUCINATIONS NSAIDS: ANAPHYLAXIS: ALLERGY MUSCLE RELAXERS: SHAKES: SIDE EFFECTS SULFA (FOR ALLERGY USE ONLY): HIVES: ALLERGY SURGICAL HISTORY HYSTERECTOMY,CHOLECYSTECTOMY,INGUINAL HERNIA,RIGHT,COLONOSCOPY,POLYPECTOMYX2,TONSILLECTOMY TENDON REPAIR LEFT WRIST/L THUMB 02/17/2017 HOSPITALIZATION/MAJOR DIAGNOSTIC PROCEDURE SURG RELATED REVIEW OF SYSTEMS REVIEWED BY: PROVIDER: BRIANNA GONZALES . CONSTITUTIONAL: ANY CHANGE IN YOUR MEDICAL CONDITION? NO . CHILLS NO . FEVER NO . INFECTION: DO YOU HAVE NEW INFECTIONS? NO . DO YOU HAVE HISTORY OF MRSA? NO . MUSCULOSKELETAL: ANY NEW PATTERNS OF PAIN OR NUMBNESS? YES, LEFT THUMB PAIN. S/P LEFT WRIST TENDON REPAIR 01/2017 . GASTROENTEROLOGY: ANY NEW CHANGE IN BOWEL CONTROL? NO . GENITOURINARY: ANY NEW CHANGE IN BLADDER CONTROL? NO . IS THERE A CHANCE YOU COULD BE ? NO . HEMATOLOGY/LYMPH: DO YOU TAKE ANY BLOOD THINNERS? (FOR EXAMPLE- COUMADIN, PLAVIX, AGGRENOX, PLATEL, PRADAXA, OR XARELTO) NO . WHEN WAS YOUR LAST DOSE? DATE: TIME: . NEUROLOGY: HAVE YOU FALLEN IN THE PAST 6 MONTHS? NO . ANY NEW EXTREMITY NUMBNESS OR WEAKNESS? NO . CARDIOLOGY: DO YOU HAVE A PACEMAKER OR DEFIBRILLATOR? NO . RESPIRATORY: HAVE YOU BEEN SICK IN THE PAST WEEK? NO . FEVER NO . FLU LIKE SYMPTOMS? NO . COUGH NO . INTEGUMENTARY: DO YOU HAVE ANY RASHES OR OPEN SORES? NO . ALLERGIC/IMMUNO: ARE YOU ALLERGIC TO SHELLFISH OR IV DYE? NO . ANY NEW ALLERGIES? NO . PSYCHIATRIC: DO YOU HAVE THOUGHTS OF HURTING YOURSELF OR SOMEONE ELSE? NO . ARE YOU ABUSED, NEGLECTED, OR IN AN UNSAFE ENVIRONMENT? NO . ENDOCRINOLOGY: ARE YOU DIABETIC? YES . OTHER: DO YOU NEED ANY PRESCRIPTIONS? NO . IF YES, PLEASE LIST: ____ . ANY NEW PROBLEMS WITH YOUR MEDICATIONS? NO . WHEN DID YOU LAST EAT? ____ . WHEN DID YOU LAST DRINK? ____ . WHAT DID YOU LAST DRINK? ____ . NAME OF PERSON DRIVING YOU HOME? ____ . DO YOU HAVE ANY OTHER QUESTIONS OR CONCERNS NO . VITAL SIGNS WT 233.2 LBS, HT 64 IN, BMI 40.02 INDEX, BP 124/70 MM HG, HR 51 /MIN, RR 16 /MIN, TEMP 97.1 F, OXYGEN SAT % 97%, NA INITIALS SC 11:49, REVIEWED BY: ANTHONY. EXAMINATION GENERAL EXAMINATION: PSYCHALERT , ORIENTED X 3 , APPROPRIATE MOOD AND AFFECT . LUNGS:CLEAR TO AUSCULTATION BILATERALLY. HEART:HEART RATE REGULAR. EXTREMITIES:RIGHT WRIST, HAND WITHOUT EDEMA, TENDERNESS ANDWILL FULL ROM. LEFT WRIST WELL HEALED SURGICAL INCISIONS OVER FOREARM. TRACE EDEMA NOTED AT BASE OF LEFT THUMB, TENDER WITH PALPATION AT THIS AREA.. ASSESSMENTS LEFT WRIST PAIN - M25.532 (PRIMARY) TREATMENT LEFT WRIST PAIN NOTES: USE VOLTAREN GEL TO LEFT FOREARM. CONTINUE OCCUPATIONAL THERAPY AND EXERCISES. STOP MAGNESIUM. PROCEDURE CODES FA211 ESTABILISHED PATIENT [facility] CHARGE DISPOSITION & COMMUNICATION FOLLOW UP 2 MONTHS (REASON: LEFT WRIST PAIN) ELECTRONICALLY SIGNED BY BENITO CUELLO ON 07/15/2017 AT 06:34 PM EDT DISCLAIMER : THIS IS A VISIT SUMMARY EXTRACTED FROM THE [employer] CHART. IT IS NOT A COPY OF THE [employer] PROGRESS NOTE. BUCKY
== END ==
LOC: M PAIN 11:20
PROVIDERS: ATTEND Nurse Practitioner Family
DX: G89.29 Other chronic pain (principal); M25.532 Pain in left wrist; E11.9 Type 2 diabetes mellitus without complications; I12.9 Hypertensive chronic kidney disease with stage 1 through stage 4 chronic kidney disease, or unspecified chronic kidney disease; N25.81 Secondary hyperparathyroidism of renal origin; N18.3 Chronic kidney disease, stage 3 (moderate); E55.9 Vitamin D deficiency, unspecified; E03.9 Hypothyroidism, unspecified; J45.909 Unspecified asthma, uncomplicated; G40.89 Other seizures; E66.9 Obesity, unspecified; Z68.41 Body mass index [BMI] 40.0-44.9, adult; Z91.041 Radiographic dye allergy status; Z88.0 Allergy status to penicillin; Z91.030 Bee allergy status; Z88.1 Allergy status to other antibiotic agents; Z88.8 Allergy status to other drugs, medicaments and biological substances; Z88.6 Allergy status to analgesic agent; Z91.013 Allergy to seafood; Z88.2 Allergy status to sulfonamides; Z79.82 Long term (current) use of aspirin; Z79.899 Other long term (current) drug therapy

== ENCOUNTER → 2017-06-26 | Outpatient (CLI) | payer OTHER, MEDICARE ==
--- NOTE | 2017-07-13 00:14 | ECWPNPC ---
PATIENT NAME: VANDANA GUEVARA (ZECHER) : 1955 GENDER: FEMALE VISIT DATE: 06/26/2017 DISCHARGE DATE: 06/26/17 1123 VISIT LOCKED DATE TIME: PHYSICIAN: CHARIS HER RESOURCE: CHARIS HER REASON FOR APPOINTMENT 1. W/C LOW BACK PAIN HISTORY OF PRESENT ILLNESS HISTORY OF PRESENT ILLNESS: PAIN THE PATIENT DESCRIBES THE PAIN... 61 YEAR OLD MALE PATIENT WITH HISTORY OF CHRONIC LOW BACK, ANKLE, AND FOOT PAIN. PATIENT STATES HER CURRENT PAIN SCORE 0/10. 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 MRS. GUEVARA WAS SITTING AND HER FEET BECAME NUMB AND WHEN SHE STOOD UP TO WALK SHE FELL. PATIENT RECEIVED A LUMBAR FACET BLOCK ON 06/09/17 AND REPORTS HAVING NO PAIN AT THIS TIME WITH INCREASED MOBILITY AND FUNCTIONALLY. PATIENT WAS ABLE TO REDUCE HER CONSUMPTION OF MEDICATION DUE TO THE INJECTION. PATIENT HAS HAD 4 BACK SURGERIES SINCE THE INCIDENT. PATIENT STATES SHE HAS TRIED PHYSICAL THERAPY IN THE PAST AND IT DID AID IN PAIN RELIEF AND INCREASED FUNCTIONALITY FOR SOME TIME. PATIENT IS CURRENTLY USING LIDODERM PATCH, VOLTAREN GEL, AND TRAMADOL. MRS. GUEVARA STATES THAT THE MEDICATION KEEPS HER MOBILE AND FUNCTIONAL. PATIENT STATES THAT ANY ACTIVITY INCREASED THE PAIN IN HER LOWER BACK AND ANKLE AND AT THIS TIME REST AND MEDICATION AIDS IN PAIN RELIEF. PATIENT DENIES UNEXPLAINABLE WEIGHT LOSS, FEVER, CHILLS, NEW CHANGES ON HER URINARY OR BOWEL CONTROL. FALL RISK SCREENING: SCREENING :NO FALLS IN THE PAST YEAR CURRENT MEDICATIONS TAKING PERCOCET 5-325 MG TABLET 1 TABLET NEEDED ORALLY EVERY 6 HRS TAKING VOLTAREN 1 % GEL 1 STRIP EXTERNALLY (WORKERS COMP) THREE TIMES DAILY NEEDED FOR PAIN TAKING LIDODERM 5 % PATCH DIRECTED EXTERNALLY (WORKERS COMP) APPLY 1 PATCH TO PAINFUL AREA OF LOW BACK ON 12 HRS OFF 12 HOURS PRN PAIN. TAKING TRAMADOL HCL 50 MG TABLET 1 TAB ORALLY (CODE D FOR CHRONIC PAIN ) EVERY 4-6 HRS NEEDED MDD3 TAKING THERA TEARS ALLERGY 0.025 % SOLUTION 1 DROP INTO AFFECTED EYE OPHTHALMIC TWICE A DAY TAKING VITAMIN D 2000 UNIT CAPSULE 1 CAPSULE ORALLY TWICE DAILY TAKING FISH OIL DOUBLE STRENGTH 1200 MG CAPSULE 1 CAPSULE ORALLY TWICE DAILY TAKING IBUPROFEN 800 MG TABLET 1 TABLET ORALLY THREE TIMES A DAY NEEDED TAKING EPIPEN 2-LUPE 0.3 MG/0.3ML SOLUTION AUTO-INJECTOR INJECTION DIRECTED TAKING GABAPENTIN 600 MG TABLET 1 TABLET ORALLY THREE TIMES A DAY TAKING DIOVAN 320 MG TABLET 1 TABLET ORALLY ONCE A DAY TAKING CLONAZEPAM 0.5 MG TABLET 0.5 ORALLY 0.5MG1/2 TAB IN AM, 0.5MG 1/2 TAB AFTERNOON TAKING PROAIR HFA 108 (90 BASE) MCG/ACT AEROSOL SOLUTION 2 PUFFS NEEDED INHALATION QID PRN TAKING IMITREX 100 MG TABLET 1 TABLET NEEDED ORALLY DIRECTED PRN MIGRAINES TAKING PROBIOTIC CAPSULE 1 TAB(S) ORALLY DAILY, NOTES: 06/08/17 0700 TAKING MAGNESIUM 400 MG CAPSULE 1 TAB(S) ORALLY ONCE A DAY TAKING BENADRYL ALLERGY 25 MG CAPSULE 1 CAPSULE NEEDED ORALLY EVERY 6 HRS NEEDED SEASONAL TAKING BACLOFEN 10 MG TABLET 1 TABLET WITH FOOD OR MILK ORALLY DAILY TAKING TOPAMAX 100 100MG TABLET ORAL AT BEDTIME TAKING 28-0.8 MG TABLET ORALLY TAKING ASPIRIN EC 81 MG TABLET DELAYED RELEASE 1 TABLET ORALLY ONCE A DAY TAKING LABETALOL HCL 100 MG TABLET ORALLY TWO TIMES DAILY TAKING VALSARTAN 320 MG TABLET 1 TABLET ORALLY ONCE A DAY TAKING AMLODIPINE BESYLATE 5 MG TABLET 1 TABLET ORALLY ONCE A DAY TAKING ARIPIPRAZOLE 2 MG TABLET 1 TABLET ORALLY ONCE A DAY TAKING SUSTAIN 1-2 DROPS NEEDED TAKING ATORVASTATIN CALCIUM 10 MG TABLET 1 TABLET ORALLY ONCE A DAY TAKING HYDROCHLOROTHIAZIDE 12.5 MG CAPSULE 1 CAPSULE IN THE MORNING ORALLY ONCE A DAY TAKING KLOR-CON M20 20 MEQ TABLET EXTENDED RELEASE 1 TABLET WITH FOOD ORALLY ONCE A DAY TAKING SUMATRIPTAN & HOMEOPATHIC PROD 50 MG THERAPY PACK 100MG ORALLY BID PRN HEADACHE TAKING ALBUTEROL SULFATE 108 (90 BASE) MCG/ACT AEROSOL POWDER BREATH ACTIVATED 1 PUFF NEEDED INHALATION EVERY 4 HRS TAKING EPINEPHRINE 0.3 MG/DOSE DEVICE INJECTION MEDICATION LIST REVIEWED AND RECONCILED WITH THE PATIENT PAST MEDICAL HISTORY PRIMARY HTN,SECONDARY RENAL HYPERPARATHYROIDISM,CRI STAGE 3,VIT D DEFICIENT,HYPOMAGNISEMIA CKD3, 11/05 RENAL US WITH INCREASED ECHOGENICITY CONS WITH [facility] MEDICAL RENAL DISEASE - ERWIN EDEMA VIT D DEF HTN HYPOTHYROIDISM ASTHMA, DR NARVAEZ 2008, FELL WORKING FOOT TANGLED IN PURSE HANDLES FOR CP CLINIC, WEARS BRACE 03/07 LIVER US DIFFUSE FIBROFATTY INFILTRATION OF THE LIVER 01/05 MRI L SPINE - MIN CTL CANAL STENOSIS AT L1-2 D/T DISC BULGE, LIGAMENTOUSE AND FACET HYPERTROPHY, MILD CTL CANAL STENOSIS AT L2-3, L4-5 D/T DISC BULGE, LIGAMENTOUS AND FACET HYPERTROPHY, DIFFUSE DISC BULGE AND SMALL L PARACENTRAL DISC PROTRUSION AT THE L5-S1 WITH MINIMAL COMPRESSION OF THE THECAL SAC AND S1 NERVES, GREATER ON THE L, COMPRESSION OF THE L5 NERVES IN THE NEURAL FORAMINA. EPIGASTRIC TENDERNESS - DR STONE GI SYR 15 L WRIST FX - FISH OBESITY PSEUDOSEIZURES - NEURO/ALI ALLERGIES IV DYE: ANAPHYLAXIS PENICILLIN (FOR ALLERGIES USE ONLY): ANAPHYLAXIS: ALLERGY BEE POLLEN: ANAPHYLAXIS BACTRIM: ANAPHYLAXIS: ALLERGY ERYTHROMYCIN: ANAPHYLAXIS: ALLERGY PENICILLIN (FOR ALLERGIES USE ONLY): HIVES INDOCIN: HEADEACHES: ALLERGY ZITHROMAX: HEADACHES: ALLERGY INDOCIN: HIVES ZITHROMAX: HIVES IVP DYE: ANAPHYLAXIS: ALLERGY NSAIDS,TORADOL: HIVES BEE STINGS: ANAPHYLAXIS: ALLERGY HARD SHELL SEAFOOD: ANAPHYLAXIS: ALLERGY BIAXIN: HALLUCINATIONS NSAIDS: ANAPHYLAXIS: ALLERGY MUSCLE RELAXERS: SHAKES: SIDE EFFECTS SULFA (FOR ALLERGY USE ONLY): HIVES: ALLERGY REVIEW OF SYSTEMS REVIEWED BY: PROVIDER: CHARIS HER MD . CONSTITUTIONAL: ANY CHANGE IN YOUR MEDICAL CONDITION? NO . CHILLS NO . FEVER NO . INFECTION: DO YOU HAVE NEW INFECTIONS? NO . DO YOU HAVE HISTORY OF MRSA? NO . MUSCULOSKELETAL: ANY NEW PATTERNS OF PAIN OR NUMBNESS? NO . GASTROENTEROLOGY: ANY NEW CHANGE IN BOWEL CONTROL? NO . GENITOURINARY: ANY NEW CHANGE IN BLADDER CONTROL? NO . IS THERE A CHANCE YOU COULD BE ? NO . HEMATOLOGY/LYMPH: DO YOU TAKE ANY BLOOD THINNERS? (FOR EXAMPLE- COUMADIN, PLAVIX, AGGRENOX, PLATEL, PRADAXA, OR XARELTO) NO . WHEN WAS YOUR LAST DOSE? DATE: TIME: . NEUROLOGY: HAVE YOU FALLEN IN THE PAST 6 MONTHS? NO . ANY NEW EXTREMITY NUMBNESS OR WEAKNESS? NO . CARDIOLOGY: DO YOU HAVE A PACEMAKER OR DEFIBRILLATOR? NO . RESPIRATORY: HAVE YOU BEEN SICK IN THE PAST WEEK? NO . FEVER NO . FLU LIKE SYMPTOMS? NO . COUGH NO . INTEGUMENTARY: DO YOU HAVE ANY RASHES OR OPEN SORES? NO . ALLERGIC/IMMUNO: ARE YOU ALLERGIC TO SHELLFISH OR IV DYE? YES . ANY NEW ALLERGIES? NO . PSYCHIATRIC: DO YOU HAVE THOUGHTS OF HURTING YOURSELF OR SOMEONE ELSE? NO . ARE YOU ABUSED, NEGLECTED, OR IN AN UNSAFE ENVIRONMENT? NO . ENDOCRINOLOGY: ARE YOU DIABETIC? NO . OTHER: DO YOU NEED ANY PRESCRIPTIONS? NO . IF YES, PLEASE LIST: ____ . ANY NEW PROBLEMS WITH YOUR MEDICATIONS? NO . WHEN DID YOU LAST EAT? ____ . WHEN DID YOU LAST DRINK? ____ . WHAT DID YOU LAST DRINK? ____ . NAME OF PERSON DRIVING YOU HOME? ____ . DO YOU HAVE ANY OTHER QUESTIONS OR CONCERNS NO . VITAL SIGNS WT 233.2 LBS, HT 64 IN, BMI 40.02 INDEX, BP 134/67 MM HG, HR 59 /MIN, RR 16 /MIN, TEMP 97.0 F, OXYGEN SAT % 97, NA INITIALS MP 1051, REVIEWED BY: VD. EXAMINATION : PATIENT IS ALERT O X 3 AND COOPERATIVE. BRACE OVER LEFT ANKLE. LIMPING FROM LEFT LEG. ANTALGIC GAIT. TENDERNESS IN THE LOWER BACK AND PARASPINAL MUSCLE GROUP. LEFT LEG IS WEAKER THEN THE RIGHT AT EXTENSION AND FLEXION .MRI OF THE LUMBAR SPINE DONE ON 08/07/16 SHOWS MULTIPLE DISC BULGES, DEGENERATIVE DISC DISEASE, AND OSTEOARTHRITIC FACET DISEASE. 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 GUEVARA'S PAIN MANAGEMENT CASE. AT THIS TIME THE PATIENT WILL CONTINUE WITH THE SAME MEDICATION REGIME BEFORE. PATIENT IS USING THE TRAMADOL, LIDODERM PATCH AND VOLTAREN GEL FOR THE SOMATIC PAIN. PATIENT DENIES ABUSE OF ANY MEDICATION, DENIES USE OF ILLEGAL SUBSTANCES AND STATES SHE IS ONLY USING THE MEDICATION FOR PAIN MANAGEMENT. URINE TOXICOLOGY REPORT DONE ON 03/04/17 SHOWS CONSISTENT RESULTS WITH THE PATIENT'S MEDICATION LIST. PATIENT RECEIVED A LUMBAR FACET BLOCK ON 06/09/17 AND REPORTS DOING VERY WELL FROM THE INJECTION AND HAD OVER 50% RELIEF FROM THE PAIN WITH INCREASED MOBILITY AND FUNCTIONALITY. PATIENT WAS ABLE TO REDUCE MEDICATION WELL. NO INTERVENTIONS WILL BE HELD AT THIS TIME DUE TO THE PAIN RELIEF. PATIENT WILL FOLLOW UP IN 3 MONTHS BUT WAS ADVISED TO CALL IF THE PAIN SIGNIFICANTLY INCREASES. INSTRUCTIONS WERE GIVEN, QUESTIONS WERE ANSWERED, PATIENT REPORTS UNDERSTANDING AND AGREES WITH THE PLAN. I, SYDNIE AMBRIZ, DOCUMENTED THE ABOVE INFORMATION ACTING A SCRIBE FOR DR. HER. I HAVE REVIEWED THE ABOVE DOCUMENT, WRITTEN BY SYDNIE KILGOREIBScooby AND I VERIFY THAT IT IS ACCURATE. PROCEDURES PN WORKMANS' COMP OPINION IN YOUR OPINION, WAS THE INCIDENT THAT THE PATIENT DESCRIBED THE COMPETENT MEDICAL CAUSE OF THIS INJURY/ILLNESS? YES ARE THE PATIENT'S COMPLAINTS CONSISTENT WITH HIS/HER HISTORY OF THE INJURY/ILLNESS? YES IS THE PATIENT'S HISTORY OF THE INJURY/ILLNESS CONSISTENT WITH YOUR OBJECTIVE FINDING? YES WHAT IS THE PERCENTAGE OF TEMPORARY IMPAIRMENT? MARKED = 75% IS THE PATIENT WORKING? NO DOCTOR ON SITE: CHARIS MCMAHON MD PROCEDURE CODES FA211 ESTABILISHED PATIENT [facility] FACILITY CHARGE G8427 DOC MEDS VERIFIED W/PT OR RE G8730 PAIN ASSESS POS TOOL F/U PLAN DOC DISPOSITION & COMMUNICATION FOLLOW UP 3 WEEKS ELECTRONICALLY SIGNED BY CHARIS HER MD ON 07/12/2017 AT 03:54 PM EDT DISCLAIMER : THIS IS A VISIT SUMMARY EXTRACTED FROM THE [employer] CHART. IT IS NOT A COPY OF THE [employer] PROGRESS NOTE. BUCKY
== END ==
LOC: M PAIN 10:40
PROVIDERS: ATTEND Anesthesiology
DX: M96.1 Postlaminectomy syndrome, not elsewhere classified (principal); M47.816 Spondylosis without myelopathy or radiculopathy, lumbar region; M47.817 Spondylosis without myelopathy or radiculopathy, lumbosacral region; M51.16 Intervertebral disc disorders with radiculopathy, lumbar region; I12.9 Hypertensive chronic kidney disease with stage 1 through stage 4 chronic kidney disease, or unspecified chronic kidney disease; N18.3 Chronic kidney disease, stage 3 (moderate); E55.9 Vitamin D deficiency, unspecified; E03.9 Hypothyroidism, unspecified; J44.9 Chronic obstructive pulmonary disease, unspecified; E66.9 Obesity, unspecified; Z68.41 Body mass index [BMI] 40.0-44.9, adult; Z91.041 Radiographic dye allergy status; Z88.0 Allergy status to penicillin; Z91.030 Bee allergy status; Z88.1 Allergy status to other antibiotic agents; Z88.6 Allergy status to analgesic agent; Z91.013 Allergy to seafood; Z88.2 Allergy status to sulfonamides; Z88.8 Allergy status to other drugs, medicaments and biological substances; Z79.891 Long term (current) use of opiate analgesic; Z79.82 Long term (current) use of aspirin; Z79.899 Other long term (current) drug therapy

== ENCOUNTER → 2017-10-20 | Outpatient (CLI) | payer OTHER, MEDICARE ==
--- NOTE | 2017-11-09 00:05 | ECWPNPC ---
PATIENT NAME: VANDANA GUEVARA (ZECHER) : 1955 GENDER: FEMALE VISIT DATE: 10/20/2017 DISCHARGE DATE: 10/20/17 1050 VISIT LOCKED DATE TIME: PHYSICIAN: BRIANNA CHOI RESOURCE: BRIANNA CHOI REASON FOR APPOINTMENT 1. W/C LOW BACK HISTORY OF PRESENT ILLNESS HISTORY OF PRESENT ILLNESS: PAIN THE PATIENT DESCRIBES THE PAIN... FALL RISK SCREENING: SCREENING :NO FALLS IN THE PAST YEAR TODAY'S VISIT: NOTES: WC FOLLOWUP FOR LOW BACK, LEFT ANKLE. RATES PAIN LEVEL TODAY 5/10. DESCRIBES PAIN CONSTANT, ACHING, TENDER, THROBBING AND SORE WITH SHOOTING PAIN IN LEFT LOW BACK WITH RADIATION TO THE SCIATIC REGION AND POSTERIOR LEFT THIGH. LEFT ANKLE IS INTERMITTANTLY SWOLLEN AND VERY SORE. HAS DIFFICULTY WALKING FOR MORE THAN 50-100 FEET.. CURRENT MEDICATIONS TAKING VOLTAREN 1 % GEL 1 STRIP EXTERNALLY (WORKERS COMP) THREE TIMES DAILY NEEDED FOR PAIN TAKING LIDODERM 5 % PATCH DIRECTED EXTERNALLY (WORKERS COMP) APPLY 1 PATCH TO PAINFUL AREA OF LOW BACK ON 12 HRS OFF 12 HOURS PRN PAIN. TAKING TRAMADOL HCL 50 MG TABLET 1 TAB ORALLY (CODE D FOR CHRONIC PAIN ) EVERY 4-6 HRS NEEDED MDD3 TAKING VITAMIN D 2000 UNIT CAPSULE 1 CAPSULE ORALLY ONCE DAILY TAKING FISH OIL DOUBLE STRENGTH 1200 MG CAPSULE 1 CAPSULE ORALLY THREE TIMES DAILY TAKING IBUPROFEN 800 MG TABLET 1 TABLET ORALLY THREE TIMES A DAY NEEDED TAKING EPIPEN 2-LUPE 0.3 MG/0.3ML SOLUTION AUTO-INJECTOR INJECTION DIRECTED TAKING GABAPENTIN 600 MG TABLET 1 TABLET ORALLY THREE TIMES A DAY TAKING CLONAZEPAM 0.5 MG TABLET 0.5 ORALLY 1/2 TAB IN AM AND 1/4 TAB IN PM TAKING PROAIR HFA 108 (90 BASE) MCG/ACT AEROSOL SOLUTION 2 PUFFS NEEDED INHALATION QID PRN TAKING IMITREX 100 MG TABLET 1 TABLET NEEDED ORALLY DIRECTED PRN MIGRAINES TAKING PROBIOTIC CAPSULE 1 TAB(S) ORALLY DAILY TAKING MAGNESIUM 400 MG CAPSULE 1 TAB(S) ORALLY ONCE A DAY TAKING TOPAMAX 100 100MG TABLET ORAL AT BEDTIME TAKING 28-0.8 MG TABLET ORALLY DAILY TAKING ASPIRIN EC 81 MG TABLET DELAYED RELEASE 1 TABLET ORALLY ONCE A DAY TAKING LABETALOL HCL 100 MG TABLET ORALLY TWO TIMES DAILY TAKING VALSARTAN 320 MG TABLET 1 TABLET ORALLY ONCE A DAY TAKING AMLODIPINE BESYLATE 5 MG TABLET 1 TABLET ORALLY ONCE A DAY TAKING ARIPIPRAZOLE 2 MG TABLET 1 TABLET ORALLY ONCE A DAY TAKING SUSTAIN 1-2 DROPS NEEDED TAKING ATORVASTATIN CALCIUM 10 MG TABLET 1 TABLET ORALLY ONCE A DAY TAKING HYDROCHLOROTHIAZIDE 12.5 MG CAPSULE 1 CAPSULE IN THE MORNING ORALLY ONCE A DAY TAKING KLOR-CON M20 20 MEQ TABLET EXTENDED RELEASE 1 TABLET WITH FOOD ORALLY ONCE A DAY TAKING CYCLOBENZAPRINE HCL 10 MG TABLET 1 TABLET NEEDED ORALLY AT BEDTIME TAKING OMEPRAZOLE 20 MG CAPSULE DELAYED RELEASE 1 CAPSULE ORALLY ONCE A DAY TAKING CALCIUM 500 + D 500-125 MG-UNIT TABLET 1 TABLET WITH FOOD ORALLY ONCE A DAY NOT-TAKING PERCOCET 5-325 MG TABLET 1 TABLET NEEDED ORALLY EVERY 6 HRS NOT-TAKING THERA TEARS ALLERGY 0.025 % SOLUTION 1 DROP INTO AFFECTED EYE OPHTHALMIC TWICE A DAY NOT-TAKING DIOVAN 320 MG TABLET 1 TABLET ORALLY ONCE A DAY NOT-TAKING BENADRYL ALLERGY 25 MG CAPSULE 1 CAPSULE NEEDED ORALLY EVERY 6 HRS NEEDED SEASONAL NOT-TAKING BACLOFEN 10 MG TABLET 1 TABLET WITH FOOD OR MILK ORALLY DAILY NOT-TAKING SUMATRIPTAN & HOMEOPATHIC PROD 50 MG THERAPY PACK 100MG ORALLY BID PRN HEADACHE NOT-TAKING ALBUTEROL SULFATE 108 (90 BASE) MCG/ACT AEROSOL POWDER BREATH ACTIVATED 1 PUFF NEEDED INHALATION EVERY 4 HRS NOT-TAKING EPINEPHRINE 0.3 MG/DOSE DEVICE INJECTION DISCONTINUED TOPIRAMATE 100 MG TABLET 1 TABLET ORALLY DAILY MEDICATION LIST REVIEWED AND RECONCILED WITH THE PATIENT PAST MEDICAL HISTORY PRIMARY HTN,SECONDARY RENAL HYPERPARATHYROIDISM,CRI STAGE 3,VIT D DEFICIENT,HYPOMAGNISEMIA CKD3, 11/05 RENAL US WITH INCREASED ECHOGENICITY CONS WITH [facility] RENAL DISEASE - ERWIN EDEMA VIT D DEF HTN HYPOTHYROIDISM ASTHMA, DR NARVAEZ 2008, FELL WORKING FOOT TANGLED IN PURSE HANDLES FOR CP CLINIC, WEARS BRACE 03/07 LIVER US DIFFUSE FIBROFATTY INFILTRATION OF THE LIVER 01/05 MRI L SPINE - MIN CTL CANAL STENOSIS AT L1-2 D/T DISC BULGE, LIGAMENTOUSE AND FACET HYPERTROPHY, MILD CTL CANAL STENOSIS AT L2-3, L4-5 D/T DISC BULGE, LIGAMENTOUS AND FACET HYPERTROPHY, DIFFUSE DISC BULGE AND SMALL L PARACENTRAL DISC PROTRUSION AT THE L5-S1 WITH MINIMAL COMPRESSION OF THE THECAL SAC AND S1 NERVES, GREATER ON THE L, COMPRESSION OF THE L5 NERVES IN THE NEURAL FORAMINA. EPIGASTRIC TENDERNESS - DR STONE GI SYR 02/04 L WRIST FX - FISH OBESITY PSEUDOSEIZURES - NEURO/ALI ALLERGIES IV DYE: ANAPHYLAXIS PENICILLIN (FOR ALLERGIES USE ONLY): ANAPHYLAXIS: ALLERGY BEE POLLEN: ANAPHYLAXIS BACTRIM: ANAPHYLAXIS: ALLERGY ERYTHROMYCIN: ANAPHYLAXIS: ALLERGY PENICILLIN (FOR ALLERGIES USE ONLY): HIVES INDOCIN: HEADEACHES: ALLERGY ZITHROMAX: HEADACHES: ALLERGY INDOCIN: HIVES ZITHROMAX: HIVES IVP DYE: ANAPHYLAXIS: ALLERGY NSAIDS,TORADOL: HIVES BEE STINGS: ANAPHYLAXIS: ALLERGY HARD SHELL SEAFOOD: ANAPHYLAXIS: ALLERGY BIAXIN: HALLUCINATIONS NSAIDS: ANAPHYLAXIS: ALLERGY MUSCLE RELAXERS: SHAKES: SIDE EFFECTS SULFA (FOR ALLERGY USE ONLY): HIVES: ALLERGY SOCIAL HISTORY GENERAL: TOBACCO USE ARE YOU A:NONSMOKER ALCOHOL SCREENING POINTS1 INTERPRETATIONNEGATIVE RECREATIONAL DRUG USE DRUG USE?NO ANA[employer]IST [id number] JUDA[employer] LANGUAGE LANGUAGES SPOKEN:BRITISH LEARNING BARRIERS / SPECIAL NEEDS BARRIERS TO LEARNING?NO HEARING IMPAIRED?NO VISION IMPAIRED?YES :CORRECTIVE LENSES COGNITIVELY IMPAIRED?NO READINESS TO LEARN?YES LEARNING PREFERENCES?NO LEARNING CAPABILITIES PRESENT?YES EMOTIONAL BARRIERS?NO SPECIAL DEVICES?YES :CANE DIRECTOR OF SPORTS MEDICINE NEEDED?NO PAIN CLINIC PFS, CLERGY, PUBLIC HEALTH REFERRALS PFS REFERRAL NEEDED?NO CLERGY REFERRAL NEEDED?NO PUBLIC HEALTH REFERRAL NEEDED?NO WAS THE PROVIDER NOTIFIED OF ANY PERTINENT INFO?NO HAS THE PATIENT BEEN EDUCATED REGARDING HIS/HER PLAN OF CARE?YES HAS THE PATIENT BEEN EDUCATED REGARDING PAIN, THE RISK FOR PAIN, THE IMPORTANCE OF EFFECTIVE PAIN MANAGEMENT, AND THE PAIN ASSESSMENT PROCESS?YES PATIENT: ____. ADVANCE DIRECTIVES HEALTH CARE PROXY?YES NAME OF HCP OPHELIA GUEVARA DO YOU HAVE A COPY WITH YOU?NO DO YOU HAVE A DNR?YES DO YOU HAVE A COPY WITH YOU?NO LIVING WILL?YES DO YOU HAVE A COPY WITH YOU?NO POWER OF FITNESS AND WELLNESS COORDINATOR?NO WOULD YOU LIKE MORE INFORMATION?NO REVIEW OF SYSTEMS FOLLOW-UP ROS: PSYCHOLOGY: SLEEP DISTURBANCE DUE TO BACK PAIN . REVIEWED BY: PROVIDER: . CONSTITUTIONAL: ANY CHANGE IN YOUR MEDICAL CONDITION? NO . CHILLS NO . FEVER NO . INFECTION: DO YOU HAVE NEW INFECTIONS? NO . DO YOU HAVE HISTORY OF MRSA? NO . MUSCULOSKELETAL: ANY NEW PATTERNS OF PAIN OR NUMBNESS? YES, LEFT SCIATIC IS CAUSING PAIN . GASTROENTEROLOGY: ANY NEW CHANGE IN BOWEL CONTROL? NO . GENITOURINARY: ANY NEW CHANGE IN BLADDER CONTROL? NO . IS THERE A CHANCE YOU COULD BE ? NO . HEMATOLOGY/LYMPH: DO YOU TAKE ANY BLOOD THINNERS? (FOR EXAMPLE- COUMADIN, PLAVIX, AGGRENOX, PLATEL, PRADAXA, OR XARELTO) NO . WHEN WAS YOUR LAST DOSE? DATE: TIME: . NEUROLOGY: HAVE YOU FALLEN IN THE PAST 6 MONTHS? NO . ANY NEW EXTREMITY NUMBNESS OR WEAKNESS? NO . HEADACHE RECENT INCREASE IN HEADACHE WITH MUSCLE SPASMS. . CARDIOLOGY: DO YOU HAVE A PACEMAKER OR DEFIBRILLATOR? NO . RESPIRATORY: HAVE YOU BEEN SICK IN THE PAST WEEK? NO . FEVER NO . FLU LIKE SYMPTOMS? NO . COUGH NO . INTEGUMENTARY: DO YOU HAVE ANY RASHES OR OPEN SORES? NO . ALLERGIC/IMMUNO: ARE YOU ALLERGIC TO SHELLFISH OR IV DYE? YES, IV DYE . ANY NEW ALLERGIES? NO . PSYCHIATRIC: DO YOU HAVE THOUGHTS OF HURTING YOURSELF OR SOMEONE ELSE? NO . ARE YOU ABUSED, NEGLECTED, OR IN AN UNSAFE ENVIRONMENT? NO . ENDOCRINOLOGY: ARE YOU DIABETIC? NO . OTHER: DO YOU NEED ANY PRESCRIPTIONS? YES . IF YES, PLEASE LIST: VOLTAREN AND TRAMADOL . ANY NEW PROBLEMS WITH YOUR MEDICATIONS? NO . WHEN DID YOU LAST EAT? ____ . WHEN DID YOU LAST DRINK? ____ . WHAT DID YOU LAST DRINK? ____ . NAME OF PERSON DRIVING YOU HOME? ____ . DO YOU HAVE ANY OTHER QUESTIONS OR CONCERNS NO . VITAL SIGNS WT 235.0 LBS, HT 64 IN, BMI 40.33 INDEX, BP 128/65 MM HG, HR 63 /MIN, RR 16 /MIN, TEMP 96.3 F, OXYGEN SAT % 96%, SAFE IN ENV? (Y/N) YES, NA INITIALS TL 0945, REVIEWED BY: CS. EXAMINATION GENERAL EXAMINATION: LUNGS:CLEAR TO AUSCULTATION BILATERALLY. HEART:HEART RATE REGULAR. MUSCULOSKELETAL:POINT TENDERNESS OVER THE LEFT SIJ AND BUTTUCK. GAIT ANTALGIC. LEFT LATERAL ANKLE WITH TRACE EDMA. TENDER OVER LATERAL MALLEOLUS.. 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 WALK AND STRETCH ABLE. CONTINUE MASSAGE. PROCEDURES PN WORKMANS' COMP OPINION IN YOUR OPINION, WAS THE INCIDENT THAT THE PATIENT DESCRIBED THE COMPETENT MEDICAL CAUSE OF THIS INJURY/ILLNESS? YES ARE THE PATIENT'S COMPLAINTS CONSISTENT WITH HIS/HER HISTORY OF THE INJURY/ILLNESS? YES IS THE PATIENT'S HISTORY OF THE INJURY/ILLNESS CONSISTENT WITH YOUR OBJECTIVE FINDING? YES WHAT IS THE PERCENTAGE OF TEMPORARY IMPAIRMENT? MARKED = 75% IS THE PATIENT WORKING? NO DOCTOR ON SITE: CHARIS MCMAHON MD PREVENTIVE MEDICINE PAIN CLINIC TEACHING: PROCEDURE TEACHING PRE-PROCEDURE TEACHING DONE AND PATIENT VERBALIZES UNDERSTANDING.. PROCEDURE CODES FA211 ESTABILISHED PATIENT [facility] FACILITY CHARGE DISPOSITION & COMMUNICATION FOLLOW UP AFTERINJECTION (REASON: WC GET AUTH FOR LEFT SIJ/ BACK/ANKLE PAIN) ELECTRONICALLY SIGNED BY BENITO CUELLO ON 11/08/2017 AT 04:01 PM EST DISCLAIMER : THIS IS A VISIT SUMMARY EXTRACTED FROM THE [employer] CHART. IT IS NOT A COPY OF THE [employer] PROGRESS NOTE. [place]
== END ==
LOC: M PAIN 09:45
PROVIDERS: ATTEND Nurse Practitioner Family
DX: M47.816 Spondylosis without myelopathy or radiculopathy, lumbar region (principal); M47.817 Spondylosis without myelopathy or radiculopathy, lumbosacral region; M96.1 Postlaminectomy syndrome, not elsewhere classified; M51.16 Intervertebral disc disorders with radiculopathy, lumbar region; I12.9 Hypertensive chronic kidney disease with stage 1 through stage 4 chronic kidney disease, or unspecified chronic kidney disease; N18.3 Chronic kidney disease, stage 3 (moderate); J45.909 Unspecified asthma, uncomplicated; G40.89 Other seizures; Z88.0 Allergy status to penicillin; Z88.1 Allergy status to other antibiotic agents; Z88.6 Allergy status to analgesic agent; Z88.8 Allergy status to other drugs, medicaments and biological substances; Z91.030 Bee allergy status; Z91.041 Radiographic dye allergy status; Z91.013 Allergy to seafood; Z79.891 Long term (current) use of opiate analgesic; Z79.1 Long term (current) use of non-steroidal anti-inflammatories (NSAID); Z79.82 Long term (current) use of aspirin; Z79.899 Other long term (current) drug therapy

== ENCOUNTER → 2017-12-25 | Outpatient (CLI) | payer OTHER, MEDICARE | LOC: M PAIN 13:45 | DX: M47.816 Spondylosis without myelopathy or radiculopathy, lumbar region (principal); M47.817 Spondylosis without myelopathy or radiculopathy, lumbosacral region; M96.1 Postlaminectomy syndrome, not elsewhere classified; M51.16 Intervertebral disc disorders with radiculopathy, lumbar region; I12.9 Hypertensive chronic kidney disease with stage 1 through stage 4 chronic kidney disease, or unspecified chronic kidney disease; N25.81 Secondary hyperparathyroidism of renal origin; N18.3 Chronic kidney disease, stage 3 (moderate); J45.909 Unspecified asthma, uncomplicated; G40.89 Other seizures; Z88.0 Allergy status to penicillin; Z88.1 Allergy status to other antibiotic agents; Z88.6 Allergy status to analgesic agent; Z88.8 Allergy status to other drugs, medicaments and biological substances; Z91.030 Bee allergy status; Z91.041 Radiographic dye allergy status; Z91.013 Allergy to seafood ==

== ENCOUNTER → 2018-01-21 | Outpatient (CLI) | payer OTHER, MEDICARE | END | disposition home or self-care (01) | LOC: M PAIN 14:00 | DX: G89.29 Other chronic pain (principal); M47.816 Spondylosis without myelopathy or radiculopathy, lumbar region; M47.817 Spondylosis without myelopathy or radiculopathy, lumbosacral region; M96.1 Postlaminectomy syndrome, not elsewhere classified; M51.16 Intervertebral disc disorders with radiculopathy, lumbar region; I12.9 Hypertensive chronic kidney disease with stage 1 through stage 4 chronic kidney disease, or unspecified chronic kidney disease; N18.3 Chronic kidney disease, stage 3 (moderate); R60.9 Edema, unspecified; E55.9 Vitamin D deficiency, unspecified; E03.9 Hypothyroidism, unspecified; J45.909 Unspecified asthma, uncomplicated; N25.81 Secondary hyperparathyroidism of renal origin; G40.89 Other seizures; Z88.0 Allergy status to penicillin; Z88.1 Allergy status to other antibiotic agents; Z88.6 Allergy status to analgesic agent; Z88.8 Allergy status to other drugs, medicaments and biological substances; Z91.030 Bee allergy status; Z91.041 Radiographic dye allergy status; Z91.013 Allergy to seafood; Z79.899 Other long term (current) drug therapy; Z79.82 Long term (current) use of aspirin | CPT/HCPCS: G0463 ==